=== PATIENT | male | born 1955 | race Caucasian/White ===

== ENCOUNTER 2018-03-09 13:42 | Observation (INO) | payer BC, MEDICARE ==
[~2018-03-09] VITALS: Ht 172.7 cm; Wt 84.1 kg
[~2018-03-09 13:42] MED LIST: ALLOPURINOL300 MG PO; ASPIRIN325 MG PO; ASPIRIN81 MG PO; ATENOLOL50 MG PO; ATORVASTATIN CA20 MG PO; CIMETIDINE800 MG PO; CLOPIDOGREL75 MG PO; FEOSOL45 MG PO; IRON PO; LISINOPRIL10 MG PO; METOPROLOL TART25 MG PO; MULTI-VITAMIN1 EACH PO; PLAVIX75 MG PO; TASIGNA150 MG PO; XARALTO PO; [UNRECOGNIZED DRUG - OTHER] PO
--- OUTSIDE RECORDS SUMMARY | 2018-03-09 13:45 | XMS REPORT | Clinical Summary ---
Author Author [id number] Organization [facility] [employer] [facility] Address Unknown Phone Unavailable Care Team Providers Care Acute Care Surgeon Name Role Phone Sharpless PCP Ramon Patel Andreas Unavailable Allergies No Known Allergies Medications End Date Status Medication Sig Dispensed Refills Start Date Active lisinopril Take 10 mg by 0 (PRINIVIL,ZESTRIL) 10 MG mouth daily. tablet Active allopurinol (ZYLOPRIM) Take 300 mg 0 300 MG tablet by mouth 2 (two) times daily. Active atorvastatin (LIPITOR) 40 Take 40 mg by 0 MG tablet mouth daily. Active cimetidine (TAGAMET) 800 Take 800 mg 0 MG tablet by mouth nightly. Active NILOTINIB HCL (TASIGNA Take 300 mg 0 ORAL) by mouth 2 (two) times daily. 07/23/2017 aspirin 81 MG EC tablet Take 1 tablet 30 tablet 11 (81 mg total) 7 by mouth daily. 07/23/2017 guaiFENesin (MUCINEX) 600 Take 1 tablet 60 tablet 11 mg 12 hr tablet (600 mg 7 total) by mouth 2 (two) times daily. 07/23/2017 metoprolol (LOPRESSOR) 25 Take 1 tablet 60 tablet 11 MG tablet (25 mg total) 7 by mouth 2 (two) times daily. Active Problems Problem Noted Date YOMI (acute kidney injury) 07/16/2016 Aortocoronary bypass status 07/16/2016 CAD (coronary artery disease) 07/15/2016 Coronary artery disease 07/15/2016 CML (chronic myelocytic leukemia) 07/15/2016 Acute pulmonary insufficiency following thoracic surgery 07/15/2016 Social History Date Tobacco Use Types Packs/Day Years Used Former Smoker 20 Alcohol Use Drinks/Week oz/Week Comments No Sex Assigned at Date Recorded Not on file Industry Job Start Date Occupation Not on file Not on file Not on file Travel End Travel History Travel Start No recent travel history available. Last Filed Vital Signs Not on file Plan of Treatment Health Maintenance Due Date Last Done Comments INFLUENZA VACCINE 01/26/2018 Results Not on fileafter 03/08/2017 Insurance Payer Benefit Subscriber ID Type Phone Address Plan / Group BLUE CROSS/BLUE SHIELD BCBS OS xxxxxxxxxxxx PPO [phone] [address] POS/PPO/[place] [address] O (Home) [place] [address] Advance Directives For more information, please contact: [facility] [address] [place] [id number] Date Inactivated Comments Code Status Date Activated 07/23/2016 5:03 PM Full Code 07/15/2016 5:15 PM This code status was determined by: Patient 07/15/2016 5:15 PM Full Code 07/15/2016 8:44 AM This code status was determined by: Patient
--- OUTSIDE RECORDS SUMMARY | 2018-03-09 13:45 | XMS REPORT | Summary of Care ---
Author Author [facility] Organization [facility] Address Unknown Phone Unavailable Encounter MAU Kaplan(FLORENCIA) [id number] Date(s): 04/22/17 - 04/22/17 [facility] [address] Discharge Disposition: Home or Self Care Attending Physician: Physician, Non Associated MD Referring Physician: Pollo Lathma MD Vital Signs 1 2 3 Most recent to oldest [Reference Range]: 172.72 cm (04/17/17 10:17 AM) Height 152/70 mmHg *HI* (04/22/17 12:30 PM) 125/63 mmHg (04/22/17 12:00 PM) 125/65 mmHg (04/22/17 11:45 AM) Blood Pressure [90-140/60-90 mmHg] 16 BRMIN (04/22/17 12:30 PM) 12 BRMIN *LOW* (04/22/17 12:00 PM) 12 BRMIN *LOW* (04/22/17 11:45 AM) Respiratory Rate [14-20 BRMIN] 61 bpm (04/22/17 6:45 AM) Peripheral Pulse Rate [60-100 bpm] 81.818 kg (04/17/17 10:17 AM) Weight 27.43 m2 (04/17/17 10:17 AM) Body Mass Index Problem List Condition Effective Dates Status Health Status Informant Anemia(Confirmed)1 Resolved Atrial Active fibrillation(Confirm ed) History of heart Resolved attack(Confirmed)2 HLD Active (hyperlipidemia)(Con firmed) Leukemia(Confirmed) Active 1blood transfusion after heart surgery and 4 iron transfusions 2about eight years ago Allergies, Adverse Reactions, Alerts Substance Reaction Severity Status NKDA Active Medications aspirin 81 mg, PO, Daily, 0 Refill(s) Start Date: 04/17/17 Status: Ordered atenolol PO, Bedtime, 0 Refill(s) Start Date: 04/17/17 Status: Ordered atorvastatin 40 mg, PO, Daily, 0 Refill(s) Start Date: 04/17/17 Status: Ordered celecoxib 200 mg oral capsule 200 mg=1 cap, PO, BID, 0 Refill(s) Start Date: 04/17/17 Status: Ordered clopidogrel 75 mg oral tablet 75 mg=1 tab, PO, Daily, 0 Refill(s) Start Date: 04/17/17 Status: Ordered Co-Q10 PO, 0 Refill(s) Start Date: 04/17/17 Status: Ordered Lasix 20 mg, PO, Daily, 0 Refill(s) Start Date: 04/17/17 Status: Ordered lisinopril 10 mg, PO, Daily, 0 Refill(s) Start Date: 04/17/17 Status: Ordered pantoprazole 40 mg oral granule =1 Pack, PO, Daily, # 30 ea, 0 Refill(s) Start Date: 04/17/17 Status: Ordered sucralfate 1 gm, PO, Before Meals & Bedtime, # 200 ml, 0 Refill(s) Start Date: 04/17/17 Status: Ordered sugammadex 500 mg, 5 mL, Route: IV, Drug form: KENDRICK MUÑOZ, Start date: 04/22/17 11:00:00 PHOTOGRAPHY SALES ASSOCIATE, Duration: 30 day, Stop date: 05/22/17 10:59:00 PHOTOGRAPHY SALES ASSOCIATE Notes: (Same as: Bridion) Start Date: 04/22/17 Stop Date: 04/22/17 Status: Deleted Tasigna 300 mg, PO, Q12H, 0 Refill(s) Start Date: 04/17/17 Status: Ordered Zofran 4 mg, Route: IV, ONCE, Dosing Weight 81.818, kg, Start date: 04/22/17 12:12:[address], Stop date: 04/22/17 12:12:00 PHOTOGRAPHY SALES ASSOCIATE Start Date: 04/22/17 Stop Date: 04/22/17 Status: Completed Results ELECTROLYTES Most recent to 1 oldest [Reference Range]: Sodium Lvl [135-145 138 mEq/L mEq/L] (04/22/17 6:43 AM) Potassium Lvl 4.2 mEq/L [3.5-5.1 mEq/L] (04/22/17 6:43 AM) Chloride Lvl [95-109 104 mEq/L mEq/L] (04/22/17 6:43 AM) CO2 [24-32 mEq/L] 26 mEq/L (04/22/17 6:43 AM) AGAP [10.0-20.0 12.2 mEq/L mEq/L] (04/22/17 6:43 AM) CHEM PANEL Most recent to 1 oldest [Reference Range]: Creatinine Lvl 1.18 mg/dL [0.50-1.40 mg/dL] (04/22/17 6:43 AM) eGFR 65 mL/min/1.73m2 1 *NA* (04/22/17 6:43 AM) BUN [7-22 mg/dL] 17 mg/dL (04/22/17 6:43 AM) Glucose Lvl [70-99 102 mg/dL mg/dL] *HI* (04/22/17 6:43 AM) Calcium Lvl 9.4 mg/dL [8.5-10.5 mg/dL] (04/22/17 6:43 AM) 1Result Comment: The eGFR is calculated using the CKD-EPI formula. In most young, healthy individuals the eGFR will be >90 mL/min/1.73m2. The eGFR declines with age. An eGFR of 60-89 may be normal in some populations, particularly the elderly, for whom the CKD-EPI formula has not been extensively validated. Use of the eGFR is not recommended in the following populations: Individuals with unstable creatinine concentrations, including patients and those with serious co-morbid conditions. Patients with extremes in muscle mass or diet. The data above are obtained from the National Kidney Disease Education Program ( NKDEP) which additionally recommends that when the eGFR is used in patients with extremes of body mass index for purposes of drug dosing, the eGFR should be mul tiplied by the estimated BMI. Immunizations No data available for this section Procedures Procedure Date Related Diagnosis Body Site Bypass1 2016 Placement of stent 2008 Cardiac catheterisation Procedure2 Tonsillectomy 1MARCH 2016 2pt does not know the medical term for this monitor Social History Social History Type Response Substance Abuse Use: None. Alcohol Current, Frequency: 1-2 times per year. Smoking Status Never smoker; Type: Cigarettes; Exposure to Tobacco Smoke None; Cigarette Smoking Last 365 Days No; Reg Smoking Cessation Counseling No Assessment and Plan No data available for this section
--- OUTSIDE RECORDS SUMMARY | 2018-03-09 13:45 | XMS REPORT | Continuity of Care Document ---
Author Author [facility] Address Unknown Phone Unavailable Problems Problem Status Onset Date Classification Date Reported Comments Source CONSTRICTIVE PERICARDITIS Active 03/11/2017 [facility] CONSTRICTIVE, PERICARDITIS/ PT HAS LOOP Active 01/08/2017 [facility] Anemia<sup>1</sup> Resolved Problem 04/25/2017 blood transfusion after heart surgery and 4 iron transfusions [facility] Atrial fibrillation Active Problem 04/25/2017 [facility] History of heart attack<sup>2</sup> Resolved Problem 04/25/2017 about eight years ago [facility] HLD (<span ID="[id number]">Confirmed</span>) Active Problem 04/25/2017 [facility] Leukemia Active Problem 04/25/2017 [facility] Medications Medication Details Route Status Patient Instructions Ordering Provider Order Date Source Zofran 4 mg, Route: IV, ONCE, Dosing Weight 81.818, kg, Start date: 04/22/17 12:12:00 MECHANICAL STRIPER, Stop date: 04/22/17 12:12:00 MECHANICAL STRIPER Inactive 04/22/2017 [facility] sugammadex 500 mg, 5 mL, Route: IV, Drug form: SOLN, ONCALL, Start date: 04/22/17 11:00:00 MECHANICAL STRIPER, Duration: 30 day, Stop date: 05/22/17 10:59:00 CSTNotes: (Same as: Bridion) Inactive 04/22/2017 [facility] clopidogrel 75 mg oral tablet 75 mg=1 tab, PO, Daily, 0 Refill(s) Active 04/17/2017 [facility] atorvastatin 40 mg, PO, Daily, 0 Refill(s) Active 04/17/2017 [facility] Tasigna 300 mg, PO, Q12H, 0 Refill(s) Active 04/17/2017 [facility] Lisinopril 10 mg, PO, Daily, 0 Refill(s) Active 04/17/2017 [facility] Atenolol PO, Bedtime, 0 Refill(s) Active 04/17/2017 [facility] celecoxib 200 mg oral capsule 200 mg=1 cap, PO, BID, 0 Refill(s) Active 04/17/2017 [facility] Sucralfate 1 gm, PO, Before Meals & Bedtime, # 200 ml, 0 Refill(s) Active 04/17/2017 [facility] pantoprazole 40 mg oral granule =1 Pack, PO, Daily, # 30 ea, 0 Refill(s) Active 04/17/2017 [facility] Lasix 20 mg, PO, Daily, 0 Refill(s) Active 04/17/2017 [facility] Co-Q10 PO, 0 Refill(s) Active 04/17/2017 [facility] Aspirin 81 mg, PO, Daily, 0 Refill(s) Active 04/17/2017 [facility] Allergies, Adverse Reactions, Alerts Substance Category Reaction Severity Reaction type Status Date Reported Comments Source Immunizations Immunization Date Given Site Status Last Updated Comments Source Results Order Name Results Value Reference Range Date Interpretation Comments Source ELECTROLYTES Sodium Lvl 138 meq/L 135 - 145 04/22/2017 [facility] ELECTROLYTES Chloride Lvl 104 meq/L 95 - 109 04/22/2017 [facility] ELECTROLYTES Calcium Lvl 9.4 mg/dL 8.5 - 10.5 04/22/2017 [facility] ELECTROLYTES Potassium Lvl 4.2 meq/L 3.5 - 5.1 04/22/2017 [facility] ELECTROLYTES Glucose Lvl 102 mg/dL 70 - 99 04/22/2017 [facility] ELECTROLYTES Creatinine Lvl 1.18 mg/dL 0.50 - 1.40 04/22/2017 [facility] ELECTROLYTES CO2 26 meq/L 24 - 32 04/22/2017 [facility] ELECTROLYTES BUN 17 mg/dL 7 - 22 04/22/2017 [facility] ELECTROLYTES AGAP 12.2 meq/L 10.0 - 20.0 04/22/2017 [facility] ELECTROLYTES eGFR 65 mL/min/1.73m2 04/22/2017 Result Comment: The eGFR is calculated using the [...] from the National Kidney Disease Education Program (NKDEP) which additionally recommends that when the eGFR is used in patients with extremes of body mass index for purposes of drug dosing, the eGFR should be multiplied by the estimated BMI. [facility] Cardiac Function Complete MRI Cardiac Function Complete MRI EXAM: MR HEART WITHOUT AND WITH CONTRAST DATE: 04/22/2017 8:00 AM MECHANICAL STRIPER INDICATION: General Anesthesia-Cardiac MRI with/without IV contrast-DX: Constrictive Pericarditis - Cardiac MRI with/without IV contrast-DX: Constrictive Pericarditis ADDITIONAL INFORMATION: Loculated pericardial effusion with prior cardiac CT COMPARISON: Cardiac CT 01/15/2017 TECHNIQUE: Multiplanar, multisequence MR images of the heart were obtained before and after administration of intravenous contrast. The study was transferred to work station where analysis of cardiac function was performed. IV contrast: Please refer to technologist notes for contrast information Heart rate=55 BPM. FINDINGS: Cardiac chambers: Mild dilation of the right atrium is noted with cross- sectional area of approximately 25 sq cm. Mild dilation of the left atrium is also seen measuring up to 4.6 cm in AP dimension. Dilation of the right ventricle is also noted with elevated end-diastolic volume as detailed below. The left ventricle is also mildly dilated measuring up to 6.1 cm in diameter. No septal bounce or abnormal diastolic filling is identified. There was no evidence of interventricular septal bowing towards the left ventricle nor impaired pericardial movement other than the region of the loculated inferior pericardial effusion. Myocardium: Thickness: Normal. Edema (TIR): Normal. Perfusion: Normal. Delayed enhancement: Subendocardial delayed enhancement is seen along the inferoseptal and inferior segments of the cardiac base with greater than 50% of the myocardium affected. LV wall motion: No areas of hypokinesis, dyskinesis, or akinesis are identified. LV Myocardial Function (REFERENCE RANGE mean +- SD(LL,UL)): Ejection fraction: 48.4% (68 +- 4.5 (59, 77) %) Stroke-volume: 94 mL (100 +- 14 (72, 128) mL) Cardiac output: 5.2 liters/min End-diastolic volume: 195 mL (148 +- 21 (106, 190) mL) End-systolic volume: 101 mL (48 +- 11 (26, 70) mL) RV Myocardial Function (REFERENCE RANGE mean +- SD(LL,UL)) Ejection fraction: 38.5% (69 +- 7 (55, 83) %) Stroke-volume: 91 mL (105 +- 17 (71, 139) mL) Cardiac output: 5.0 liters/min End-diastolic volume: 235 mL (153 +- 25 (103, 203) mL) End-systolic volume: 145 mL (48 +- 15 (18, 78) mL) Valves: Aortic valve: Unremarkable without evidence of aortic stenosis nor evidence of significant regurgitation. Mitral valve: Trace regurgitation jet, otherwise unremarkable. Pulmonic valve: Unremarkable. Tricuspid valve: Trace regurgitant jet, otherwise unremarkable. Large vessels: Aorta and branches: Ascending aortic dimension (at level of pulmonary artery): 3.0 cm. Branching pattern: The left vertebral artery originates strictly of the aortic arch. Aortic outflow (q-flow) measurements: Stroke Volume: 93.1 mL Forward Flow: 94.4 mL Backward Flow: 1.3 mL Regurgitant Fraction: 1.4% Main pulmonary artery: Patent. MPA caliber: 2.6 cm. Pericardium: A loculated pericardial effusion with peripheral thickening, peripheral segment, and internal thin septations is again seen along the inferior aspect of the heart measuring approximately 9.1 x 8.8 x 3.3 cm (TV by AP by CC). Elsewhere, there is not significant pericardial thickening. Extracardiac: Moderate bilateral pleural effusions are present. Changes of median sternotomy are noted. REFERENCE RANGES: (from: Normal values for cardiovascular magnetic resonance in adults and children. Dane Mendosa Bluemke et al., Journal of Cardiovascular Magnetic Resonance 2015 17:29 DOI: 10.1186/w76693-397-4944-2) IMPRESSION: 1. Loculated pericardial effusion with thick peripheral enhancement and multiple internal septations located along the inferior aspect of the heart and measuring up to 9.1 cm in greatest dimension, similar in size compared to be prior cardiac CT from 01/15/2017. This likely represents a chronic, loculated pericardial hematoma given the patient's history of prior surgery. No evidence of significant pericardial thickening elsewhere. 2. No physiologic features to suggest constrictive physiology. 3. Cardiomegaly with four-chamber enlargement. 4. Subendocardial enhancement along the basal inferoseptal and inferior wall left ventricular segments spanning greater than 50% wall thickness in some regions without evidence of associated perfusion defect nor evidence of acute myocardial edema, suggestive of a remote infarction in the RCA territory. 5. Left ventricular ejection fraction of 48% and right ventricular ejection fraction of 39%. 6. Moderate bilateral pleural effusions are present. 04/22/2017 - - This report was dictated by a Shearer Helper/Fellow. I have personally reviewed the images as well as the Resident's interpretation and agree with the findings. Read by: Shamir Schilling (Fellow) Resident: Shamir Schilling (Fellow) Dictated Date/time: 04/22/17 11:26 Electronically Signed by: Raz Navarrete MD 04/22/17 13:40 FINAL REPORT [facility] CHEM PANEL eGFR 64 mL/min/1.73m2 01/15/2017 Result Comment: The eGFR is calculated using the [...] from the National Kidney Disease Education Program (NKDEP) which additionally recommends that when the eGFR is used in patients with extremes of body mass index for purposes of drug dosing, the eGFR should be multiplied by the estimated BMI. [facility] CHEM PANEL POC Creatinine 1.2 mg/dL 0.5 - 1.4 01/15/2017 [facility] Heart wo contrast w eval coronary calc C Heart wo contrast w eval coronary calc C ADDENDUM: Extracardiac findings: The visualized portion of the chest and upper abdomen demonstrate: 1. Few scattered atelectatic changes in both lungs, otherwise lungs are clear. 2. Trace right and small left pleural effusions. 3. Small sliding hiatal hernia. 4. The visualized portion of the upper abdomen is unremarkable. 5. No worrisome focal osseous lesions. Post sternotomy surgical changes anteriorly. CORONARY CT ANGIOGRAPHY WITH CALCIUM SCORE REPORT DATE PERFORMED: DATE INTERPRETED: QUALITY: Fair COMPARISON: None CLINICAL HISTORY: 61 year-old patient with history of CABG, here for evaluation of pericardial disease. TECHNIQUE: Using a [employer] Aquilion 64 slice MDCT scanner, a preliminary air quality engineer study was obtained, followed by a noncontrast calcium protocol. Data were transferred off-line to an independent workstation for: - 3D anatomic reconstructions, including curved multiplanar reconstructions (MPR), maximum intensity projections (MIP), and multi-planar imaging. FINDINGS: Please see separate radiologists report for extra-cardiac findings in the available limited views of the lungs, mediastinum and bone structures. There is evidence for prior sternotomy. Heavily calcified coronary arteries, possibly a stent in the mid right coronary artery. There is evidence for pericardial thickening, more prominent in the superior mediastinum in the retrosternal area, consistent with prior history of CABG. There is a loculated pericardial effusion adjacent to the inferior wall, measuring 33 mm in depth. There is a left pleural effusion visualized Given findings of prior CABG extensive coronary disease, coronary calcium score was not calculated. IMPRESSIONS: 1. Thickening of the pericardium in the superior mediastinum and loculated pericardial effusion located adjacent to the inferior wall as described above. 2. Extensive coronary calcification, prior history of CABG 4. Given these findings in noncontrast CT, coronary CTA was not performed and contrast was not administered 5. Case was discussed with ordering physician, recommend cardiac MRI for further assessment of pericardial pathology 01/15/2017 - - Read by: Mason Anaya MD Dictated Date/time: 01/17/17 09:02 Electronically Signed by: Mason Anaya MD 01/17/17 09:17 FINAL REPORT - - Read by: Narendra Cadena Dictated Date/time: 01/15/17 16:57 Electronically Signed by: Narendra Cadena 01/15/17 17:08 FINAL REPORT [facility] Chest 2 views DX Chest 2 views DX EXAM: XR CHEST 1 VIEW DATE: 01/14/2017 2:51 PM CDT INDICATION: LOCATE FOREIGN BODY IMPLANT - MRI CLEARENCE COMPARISON: None. TECHNIQUE: AP chest IMPRESSION: 1. Anterior chest wall implanted loop recorder is noted. 2. Cardiomediastinal silhouette is upper limit of normal size. Status post coronary artery bypass graft with postsurgical changes. 3. Minimal bibasilar atelectatic changes. Otherwise, lungs are clear. 4. No pleural effusions. 5. Osseous structures are stable. 01/14/2017 - - Read by: Mason Anaya MD Dictated Date/time: 01/14/17 15:14 Electronically Signed by: Mason Anaya MD 01/14/17 15:16 FINAL REPORT [facility] Vital Signs Vital Sign Value Date Comments Source Respitory Rate 16 04/22/2017 [facility] Systolic (mm Hg) 152 04/22/2017 [facility] Diastolic (mm Hg) 70 04/22/2017 [facility] Systolic (mm Hg) 125 04/22/2017 [facility] Diastolic (mm Hg) 63 04/22/2017 [facility] Respitory Rate 12 04/22/2017 [facility] Systolic (mm Hg) 125 04/22/2017 [facility] Diastolic (mm Hg) 65 04/22/2017 [facility] Respitory Rate 12 04/22/2017 [facility] Heart Rate 61 04/22/2017 [facility] BMI Calculated 27.43 04/17/2017 [facility] Height 172.72 cm 04/17/2017 [facility] Weight 81.818 04/17/2017 [facility] Encounters Location Location Details Encounter Type Encounter Number Reason For Visit Attending Provider ADM Date DC Date Status Source [facility] [id number] Pollo Latham 01/14/2017 01/15/2017 [facility] Outpatient [id number] Pollo [facility] 01/15/2017 01/16/2017 [facility] Day Surgery [id number] Non Physician 04/22/2017 04/23/2017 [facility] Procedures Procedure Code Date Perfomer Comments Source Bypass<sup>1</sup> [id number] 04/28/2016 [facility] Placement of stent [id number] 04/28/2008 [facility] Cardiac catheterisation [id number] [facility] Procedure<sup>2</sup> [id number] pt does not know the medical term for this monitor [facility] Tonsillectomy [id number] [facility]
--- OUTSIDE RECORDS SUMMARY | 2018-03-09 13:45 | XMS REPORT | Summary of Care ---
Author Author [facility] Organization [facility] Address Unknown Phone Unavailable Encounter [facility] Encntr_alias(FIN) [id number] Date(s): 01/14/17 - 01/14/[address] Discharge Disposition: Home or Self Care Attending Physician: Pollo Latham MD Referring Physician: Pollo Latham MD Vital Signs No data available for this section Problem List No data available for this section Allergies, Adverse Reactions, Alerts No data available for this section Medications No data available for this section Results No data available for this section Immunizations No data available for this section Procedures No data available for this section Social History No data available for this section Assessment and Plan No data available for this section
--- OUTSIDE RECORDS SUMMARY | 2018-03-09 13:45 | XMS REPORT | Summary of Care ---
Author Author [facility] Organization [facility] Address Unknown Phone Unavailable Encounter [facility]([place]) [phone] Date(s): 01/15/17 - 01/15/17 [facility] [address] [employer] provided by [facility] [employer] [facility] [place] [address]- Discharge Disposition: Home or Self Care Attending Physician: Pollo Latham MD Referring Physician: Pollo Latham MD Vital Signs No data available for this section Problem List No data available for this section Allergies, Adverse Reactions, Alerts No data available for this section Medications No data available for this section Results CHEM PANEL Most recent to 1 oldest [Reference Range]: eGFR 64 mL/min/1.73m2 1 *NA* (01/15/17 1:53 PM) POC Creatinine 1.2 mg/dL [0.5-1.4 mg/dL] (01/15/17 1:53 PM) 1Result Comment: The eGFR is calculated using [...]
--- OUTSIDE RECORDS SUMMARY | 2018-03-09 13:46 | XMS REPORT ---
Author Author [facility] Address Unknown Phone Unavailable Care Team Providers Care Asphalt Layer Name Role Phone COSME HERRERA Unavailable Unavailable Problems This patient has no known problems. Allergies, Adverse Reactions, Alerts This patient has no known allergies or adverse reactions. Medications This patient has no known medications. Results Test Description Test Time Test Comments Text Results Atomic Results Result Comments MAGNESIUM 2016-07-23 05:15:00 MAGNESIUM (BEAKER) (test lgte=566) 1.9 mg/dL 1.6-2.6 BASIC METABOLIC [id number] 05:15:00* Test Item Value Reference Range Comments SODIUM (BEAKER) (test qanq=595) 136 meq/L 136-145 POTASSIUM (BEAKER) (test tujd=028) 4.5 meq/L 3.5-5.1 CHLORIDE (BEAKER) (test ayfd=928) 103 meq/L 98-107 CO2 (BEAKER) (test shbc=527) 23 meq/L 22-29 BLOOD UREA NITROGEN (BEAKER) (test weml=841) 22 mg/dL 7-21 CREATININE (BEAKER) (test vpoz=367) 0.90 mg/dL 0.57-1.25 GLUCOSE RANDOM (BEAKER) (test ahli=867) 100 mg/dL 70-105 CALCIUM (BEAKER) (test btbu=226) 8.9 mg/dL 8.4-10.2 EGFR (BEAKER) (test ookc=5879) 85 mL/min/1.73 sq m ESTIMATED GFR IS NOT ACCURATE CREATININE CLEARANCE IN PREDICTING GLOMERULAR FILTRATION RATE. ESTIMATED GFR IS NOT APPLICABLE FOR DIALYSIS PATIENTS. CBC W/PLT COUNT & AUTO [id number] 05:09:00* Test Item Value Reference Range Comments WHITE BLOOD CELL COUNT (BEAKER) (test xixd=858) 11.7 K/ L 4.0-10.0 RED BLOOD CELL COUNT (BEAKER) (test pzwe=307) 2.91 M/ L 4.20-5.80 HEMOGLOBIN (BEAKER) (test qocl=672) 8.9 GM/DL 13.0-16.8 HEMATOCRIT (BEAKER) (test qwfr=384) 27.2 % 40.0-50.0 MEAN CORPUSCULAR VOLUME (BEAKER) (test dbup=064) 93.3 fL 82.0-98.0 MEAN CORPUSCULAR HEMOGLOBIN (BEAKER) (test ipvo=423) 30.6 pg 27.0-33.0 MEAN CORPUSCULAR HEMOGLOBIN CONC (BEAKER) (test ktfc=446) 32.7 GM/DL 32.0-36.0 RED CELL DISTRIBUTION WIDTH (BEAKER) (test ufdx=299) 14.9 % 10.3-14.2 PLATELET COUNT (BEAKER) (test xtgs=363) 303 K/CU MM 150-430 MEAN PLATELET VOLUME (BEAKER) (test ulpe=544) 7.5 fL 6.5-10.5 NUCLEATED RED BLOOD CELLS (BEAKER) (test pqgv=227) 0 /100 WBC 0-0 NEUTROPHILS RELATIVE PERCENT (BEAKER) (test wmjo=067) 71 % LYMPHOCYTES RELATIVE PERCENT (BEAKER) (test rkff=089) 13 % MONOCYTES RELATIVE PERCENT (BEAKER) (test snlt=736) 10 % EOSINOPHILS RELATIVE PERCENT (BEAKER) (test biux=176) 6 % BASOPHILS RELATIVE PERCENT (BEAKER) (test wekw=276) 1 % NEUTROPHILS ABSOLUTE COUNT (BEAKER) (test owor=035) 8.28 K/ L 1.80-8.00 LYMPHOCYTES ABSOLUTE COUNT (BEAKER) (test gjwy=452) 1.50 K/ L 1.48-4.50 MONOCYTES ABSOLUTE COUNT (BEAKER) (test fycf=534) 1.14 K/ L 0.00-1.30 EOSINOPHILS ABSOLUTE COUNT (BEAKER) (test orsd=808) 0.72 K/ L 0.00-0.50 BASOPHILS ABSOLUTE COUNT (BEAKER) (test rmcq=175) 0.07 K/ L 0.00-0.20 0.00SPUTUM CULTURE + GRAM [id number] 01:54:00* Test Item Value Reference Range Comments CULTURE (BEAKER) (test xguy=8632) 4+ Haemophilus influenzaeBeta-lactamase positive GRAM STAIN RESULT (BEAKER) (test sbnu=5564) 2+ WBCs GRAM STAIN RESULT (BEAKER) (test rfle=221954) 0-5 epithelial cells GRAM STAIN RESULT (BEAKER) (test jpnv=763788) 4+ gram negative coccobacilli 1+ Normal respiratory alden [id number] 05:28:00* Test Item Value Reference Range Comments MAGNESIUM (BEAKER) (test oqnj=553) 1.9 mg/dL 1.6-2.6 BASIC METABOLIC [id number] 05:28:00* Test Item Value Reference Range Comments SODIUM (BEAKER) (test prgv=904) 137 meq/L 136-145 POTASSIUM (BEAKER) (test meiu=053) 3.8 meq/L 3.5-5.1 CHLORIDE (BEAKER) (test stry=901) 101 meq/L 98-107 CO2 (BEAKER) (test xoqe=292) 25 meq/L 22-29 BLOOD UREA NITROGEN (BEAKER) (test cdgv=974) 25 mg/dL 7-21 CREATININE (BEAKER) (test brbs=305) 0.94 mg/dL 0.57-1.25 GLUCOSE RANDOM (BEAKER) (test asho=227) 102 mg/dL 70-105 CALCIUM (BEAKER) (test orny=457) 9.1 mg/dL 8.4-10.2 EGFR (BEAKER) (test nsez=6471) 81 mL/min/1.73 sq m ESTIMATED GFR IS NOT ACCURATE CREATININE CLEARANCE IN PREDICTING GLOMERULAR FILTRATION RATE. ESTIMATED GFR IS NOT APPLICABLE FOR DIALYSIS PATIENTS. CBC W/PLT COUNT & AUTO [id number] 05:25:00* Test Item Value Reference Range Comments WHITE BLOOD CELL COUNT (BEAKER) (test mejd=638) 12.9 K/ L 4.0-10.0 RED BLOOD CELL COUNT (BEAKER) (test ompa=618) 3.07 M/ L 4.20-5.80 HEMOGLOBIN (BEAKER) (test ammj=512) 9.2 GM/DL 13.0-16.8 HEMATOCRIT (BEAKER) (test yrsp=112) 28.5 % 40.0-50.0 MEAN CORPUSCULAR VOLUME (BEAKER) (test xnrp=939) 92.7 fL 82.0-98.0 MEAN CORPUSCULAR HEMOGLOBIN (BEAKER) (test vfxd=465) 30.0 pg 27.0-33.0 MEAN CORPUSCULAR HEMOGLOBIN CONC (BEAKER) (test gmgc=695) 32.4 GM/DL 32.0-36.0 RED CELL DISTRIBUTION WIDTH (BEAKER) (test ikrm=970) 14.5 % 10.3-14.2 PLATELET COUNT (BEAKER) (test exbj=148) 261 K/CU MM 150-430 MEAN PLATELET VOLUME (BEAKER) (test yetu=964) 8.2 fL 6.5-10.5 NUCLEATED RED BLOOD CELLS (BEAKER) (test spsr=639) 0 /100 WBC 0-0 NEUTROPHILS RELATIVE PERCENT (BEAKER) (test ymhd=458) 71 % LYMPHOCYTES RELATIVE PERCENT (BEAKER) (test qhkz=096) 15 % MONOCYTES RELATIVE PERCENT (BEAKER) (test ibbe=092) 10 % EOSINOPHILS RELATIVE PERCENT (BEAKER) (test kbbj=641) 4 % BASOPHILS RELATIVE PERCENT (BEAKER) (test scdr=657) 1 % NEUTROPHILS ABSOLUTE COUNT (BEAKER) (test utdo=012) 9.17 K/ L 1.80-8.00 LYMPHOCYTES ABSOLUTE COUNT (BEAKER) (test ifjm=286) 1.95 K/ L 1.48-4.50 MONOCYTES ABSOLUTE COUNT (BEAKER) (test cjeg=736) 1.27 K/ L 0.00-1.30 EOSINOPHILS ABSOLUTE COUNT (BEAKER) (test ygep=178) 0.47 K/ L 0.00-0.50 BASOPHILS ABSOLUTE COUNT (BEAKER) (test wxhv=419) 0.07 K/ L 0.00-0.20 0.00CBC W/PLT COUNT & AUTO [id number] 06:45:00* Test Item Value Reference Range Comments WHITE BLOOD CELL COUNT (BEAKER) (test hpvd=224) 11.1 K/ L 4.0-10.0 RED BLOOD CELL COUNT (BEAKER) (test qmjy=741) 2.91 M/ L 4.20-5.80 HEMOGLOBIN (BEAKER) (test phhb=470) 8.6 GM/DL 13.0-16.8 HEMATOCRIT (BEAKER) (test tlsn=197) 27.0 % 40.0-50.0 MEAN CORPUSCULAR VOLUME (BEAKER) (test kklk=338) 92.9 fL 82.0-98.0 MEAN CORPUSCULAR HEMOGLOBIN (BEAKER) (test tecc=217) 29.5 pg 27.0-33.0 MEAN CORPUSCULAR HEMOGLOBIN CONC (BEAKER) (test otwh=298) 31.7 GM/DL 32.0-36.0 RED CELL DISTRIBUTION WIDTH (BEAKER) (test zoqe=814) 14.6 % 10.3-14.2 PLATELET COUNT (BEAKER) (test jreu=113) 220 K/CU MM 150-430 MEAN PLATELET VOLUME (BEAKER) (test cnxj=336) 8.1 fL 6.5-10.5 NUCLEATED RED BLOOD CELLS (BEAKER) (test bpxd=198) 0 /100 WBC 0-0 NEUTROPHILS RELATIVE PERCENT (BEAKER) (test mscd=997) 72 % LYMPHOCYTES RELATIVE PERCENT (BEAKER) (test wpcn=800) 12 % MONOCYTES RELATIVE PERCENT (BEAKER) (test uiie=478) 12 % EOSINOPHILS RELATIVE PERCENT (BEAKER) (test vbem=216) 4 % BASOPHILS RELATIVE PERCENT (BEAKER) (test jwno=651) 1 % NEUTROPHILS ABSOLUTE COUNT (BEAKER) (test rncm=990) 7.96 K/ L 1.80-8.00 LYMPHOCYTES ABSOLUTE COUNT (BEAKER) (test ccmc=239) 1.37 K/ L 1.48-4.50 MONOCYTES ABSOLUTE COUNT (BEAKER) (test siqo=012) 1.28 K/ L 0.00-1.30 EOSINOPHILS ABSOLUTE COUNT (BEAKER) (test hfxe=043) 0.44 K/ L 0.00-0.50 BASOPHILS ABSOLUTE COUNT (BEAKER) (test xrri=935) 0.06 K/ L 0.00-0.20 [id number] 06:29:00* Test Item Value Reference Range Comments MAGNESIUM (BEAKER) (test rjqv=351) 2.0 mg/dL 1.6-2.6 BASIC METABOLIC [id number] 06:29:00* Test Item Value Reference Range Comments SODIUM (BEAKER) (test nfzj=172) 136 meq/L 136-145 POTASSIUM (BEAKER) (test fwap=368) 3.8 meq/L 3.5-5.1 CHLORIDE (BEAKER) (test faut=743) 102 meq/L 98-107 CO2 (BEAKER) (test aenc=810) 25 meq/L 22-29 BLOOD UREA NITROGEN (BEAKER) (test cdwr=564) 25 mg/dL 7-21 CREATININE (BEAKER) (test xfvh=367) 0.95 mg/dL 0.57-1.25 GLUCOSE RANDOM (BEAKER) (test rghp=592) 103 mg/dL 70-105 CALCIUM (BEAKER) (test ukbe=417) 8.9 mg/dL 8.4-10.2 EGFR (BEAKER) (test gpjb=6516) 80 mL/min/1.73 sq m ESTIMATED GFR IS NOT ACCURATE CREATININE CLEARANCE IN PREDICTING GLOMERULAR FILTRATION RATE. ESTIMATED GFR IS NOT APPLICABLE FOR DIALYSIS PATIENTS. CBC W/PLT COUNT & AUTO [id number] 15:22:00* Test Item Value Reference Range Comments WHITE BLOOD CELL COUNT (BEAKER) (test tikh=930) 11.7 K/ L 4.0-10.0 RED BLOOD CELL COUNT (BEAKER) (test utwk=581) 2.91 M/ L 4.20-5.80 HEMOGLOBIN (BEAKER) (test wpoh=286) 9.0 GM/DL 13.0-16.8 HEMATOCRIT (BEAKER) (test vrin=160) 27.1 % 40.0-50.0 MEAN CORPUSCULAR VOLUME (BEAKER) (test wprn=960) 93.2 fL 82.0-98.0 MEAN CORPUSCULAR HEMOGLOBIN (BEAKER) (test yujg=465) 31.1 pg 27.0-33.0 MEAN CORPUSCULAR HEMOGLOBIN CONC (BEAKER) (test nbrq=162) 33.3 GM/DL 32.0-36.0 RED CELL DISTRIBUTION WIDTH (BEAKER) (test qpex=975) 14.8 % 10.3-14.2 PLATELET COUNT (BEAKER) (test ckxk=741) 187 K/CU MM 150-430 MEAN PLATELET VOLUME (BEAKER) (test zknh=402) 9.0 fL 6.5-10.5 NUCLEATED RED BLOOD CELLS (BEAKER) (test znlc=755) 0 /100 WBC 0-0 NEUTROPHILS RELATIVE PERCENT (BEAKER) (test zutb=256) 72 % LYMPHOCYTES RELATIVE PERCENT (BEAKER) (test jcme=015) 12 % MONOCYTES RELATIVE PERCENT (BEAKER) (test ukgo=509) 12 % EOSINOPHILS RELATIVE PERCENT (BEAKER) (test uuct=490) 4 % BASOPHILS RELATIVE PERCENT (BEAKER) (test nvdu=765) 0 % NEUTROPHILS ABSOLUTE COUNT (BEAKER) (test zplz=709) 8.39 K/ L 1.80-8.00 LYMPHOCYTES ABSOLUTE COUNT (BEAKER) (test xvir=543) 1.44 K/ L 1.48-4.50 MONOCYTES ABSOLUTE COUNT (BEAKER) (test lxww=893) 1.36 K/ L 0.00-1.30 EOSINOPHILS ABSOLUTE COUNT (BEAKER) (test slel=420) 0.45 K/ L 0.00-0.50 BASOPHILS ABSOLUTE COUNT (BEAKER) (test patz=059) 0.05 K/ L 0.00-0.20 0.000.600.000.000.000.00(MANUAL DIFFERENTIAL)2016-07-20 15:22:00* Test Item Value Reference Range Comments TOTAL COUNTED (BEAKER) (test rkrw=9466) WBC MORPHOLOGY (BEAKER) (test irhu=266) Normal PLT MORPHOLOGY (BEAKER) (test udik=695) Normal ACANTHOCYTES (BEAKER) (test ugwd=969) 1+ few ANISOCYTOSIS (BEAKER) (test xbxc=532) 1+ few HYPOCHROMIA (BEAKER) (test eswu=726) 1+ few MACROCYTES (BEAKER) (test mwbn=428) 1+ few OVALOCYTES (BEAKER) (test uuok=138) 1+ few POIKILOCYTES (BEAKER) (test cbaa=322) 1+ few POLYCHROMATOPHILLIC RBCS(BEAKER) (test wipl=309) 1+ few BASIC METABOLIC [id number] 07:08:00* Test Item Value Reference Range Comments SODIUM (BEAKER) (test omdk=882) 139 meq/L 136-145 POTASSIUM (BEAKER) (test msss=811) 3.9 meq/L 3.5-5.1 CHLORIDE (BEAKER) (test bwyu=255) 103 meq/L 98-107 CO2 (BEAKER) (test tiky=546) 27 meq/L 22-29 BLOOD UREA NITROGEN (BEAKER) (test iidh=675) 26 mg/dL 7-21 CREATININE (BEAKER) (test tesy=762) 1.07 mg/dL 0.57-1.25 GLUCOSE RANDOM (BEAKER) (test yukf=518) 107 mg/dL 70-105 CALCIUM (BEAKER) (test fzdt=747) 9.5 mg/dL 8.4-10.2 EGFR (BEAKER) (test zbgh=0684) 70 mL/min/1.73 sq m ESTIMATED GFR IS NOT ACCURATE CREATININE CLEARANCE IN PREDICTING GLOMERULAR FILTRATION RATE. ESTIMATED GFR IS NOT APPLICABLE FOR DIALYSIS PATIENTS. POCT-GLUCOSE [id number] 12:04:00* Test Item Value Reference Range Comments POC-GLUCOSE METER (BEAKER) (test flji=8877) 120 mg/dL 70-110 TESTED AT [facility] [address] [facility] [address] POCT-GLUCOSE [id number] 08:15:00* Test Item Value Reference Range Comments POC-GLUCOSE METER (BEAKER) (test cpgb=3994) 145 mg/dL 70-110 TESTED AT [place] [id number] [facility] [address] CBC W/PLT COUNT & AUTO [id number] 05:02:00* Test Item Value Reference Range Comments WHITE BLOOD CELL COUNT (BEAKER) (test wamz=450) 11.0 K/ L 4.0-10.0 RED BLOOD CELL COUNT (BEAKER) (test xaxu=180) 3.15 M/ L 4.20-5.80 HEMOGLOBIN (BEAKER) (test vfsp=527) 10.0 GM/DL 13.0-16.8 HEMATOCRIT (BEAKER) (test icuv=330) 29.8 % 40.0-50.0 MEAN CORPUSCULAR VOLUME (BEAKER) (test ueix=899) 94.4 fL 82.0-98.0 MEAN CORPUSCULAR HEMOGLOBIN (BEAKER) (test yjek=057) 31.6 pg 27.0-33.0 MEAN CORPUSCULAR HEMOGLOBIN CONC (BEAKER) (test zbqc=787) 33.5 GM/DL 32.0-36.0 RED CELL DISTRIBUTION WIDTH (BEAKER) (test pylq=244) 15.7 % 10.3-14.2 PLATELET COUNT (BEAKER) (test ydeb=692) 128 K/CU MM 150-430 MEAN PLATELET VOLUME (BEAKER) (test mwra=910) 9.0 fL 6.5-10.5 NUCLEATED RED BLOOD CELLS (BEAKER) (test tevp=695) 0 /100 WBC 0-0 NEUTROPHILS RELATIVE PERCENT (BEAKER) (test pgma=091) 73 % LYMPHOCYTES RELATIVE PERCENT (BEAKER) (test unnu=167) 13 % MONOCYTES RELATIVE PERCENT (BEAKER) (test dfqs=709) 11 % EOSINOPHILS RELATIVE PERCENT (BEAKER) (test cwlo=191) 3 % BASOPHILS RELATIVE PERCENT (BEAKER) (test eonb=363) 1 % NEUTROPHILS ABSOLUTE COUNT (BEAKER) (test xsln=322) 7.98 K/ L 1.80-8.00 LYMPHOCYTES ABSOLUTE COUNT (BEAKER) (test xmbh=326) 1.45 K/ L 1.48-4.50 MONOCYTES ABSOLUTE COUNT (BEAKER) (test mhok=353) 1.15 K/ L 0.00-1.30 EOSINOPHILS ABSOLUTE COUNT (BEAKER) (test wicy=934) 0.35 K/ L 0.00-0.50 BASOPHILS ABSOLUTE COUNT (BEAKER) (test gqds=624) 0.06 K/ L 0.00-0.20 0.00BASIC METABOLIC [id number] 05:01:00* Test Item Value Reference Range Comments SODIUM (BEAKER) (test yjnq=272) 139 meq/L 136-145 POTASSIUM (BEAKER) (test cigm=718) 4.0 meq/L 3.5-5.1 CHLORIDE (BEAKER) (test mxyv=373) 104 meq/L 98-107 CO2 (BEAKER) (test nipv=814) 23 meq/L 22-29 BLOOD UREA NITROGEN (BEAKER) (test ytbb=232) 30 mg/dL 7-21 CREATININE (BEAKER) (test ecdk=438) 1.06 mg/dL 0.57-1.25 GLUCOSE RANDOM (BEAKER) (test qaoe=693) 110 mg/dL 70-105 CALCIUM (BEAKER) (test ftfp=954) 9.2 mg/dL 8.4-10.2 EGFR (BEAKER) (test nmgt=8798) 71 mL/min/1.73 sq m ESTIMATED GFR IS NOT ACCURATE CREATININE CLEARANCE IN PREDICTING GLOMERULAR FILTRATION RATE. ESTIMATED GFR IS NOT APPLICABLE FOR DIALYSIS PATIENTS. POCT-GLUCOSE [id number] 21:26:00* Test Item Value Reference Range Comments POC-GLUCOSE METER (BEAKER) (test ciyp=9577) 141 mg/dL 70-110 TESTED AT [address] [address] POCT-GLUCOSE [id number] 18:16:00* Test Item Value Reference Range Comments POC-GLUCOSE METER (BEAKER) (test iocu=4656) 148 mg/dL 70-110 TESTED AT [facility] [address] [facility] [address] [id number] 06:40:00* Test Item Value Reference Range Comments MAGNESIUM (BEAKER) (test funp=656) 2.2 mg/dL 1.6-2.6 BASIC METABOLIC [id number] 06:31:00* Test Item Value Reference Range Comments SODIUM (BEAKER) (test bqec=307) 138 meq/L 136-145 POTASSIUM (BEAKER) (test podn=680) 4.0 meq/L 3.5-5.1 CHLORIDE (BEAKER) (test suvk=408) 104 meq/L 98-107 CO2 (BEAKER) (test nxqq=297) 25 meq/L 22-29 BLOOD UREA NITROGEN (BEAKER) (test akjd=977) 33 mg/dL 7-21 CREATININE (BEAKER) (test quns=476) 1.08 mg/dL 0.57-1.25 GLUCOSE RANDOM (BEAKER) (test tnzs=829) 125 mg/dL 70-105 CALCIUM (BEAKER) (test bmkw=187) 8.7 mg/dL 8.4-10.2 EGFR (BEAKER) (test rpft=1143) 69 mL/min/1.73 sq m ESTIMATED GFR IS NOT ACCURATE CREATININE CLEARANCE IN PREDICTING GLOMERULAR FILTRATION RATE. ESTIMATED GFR IS NOT APPLICABLE FOR DIALYSIS PATIENTS. CBC W/PLT COUNT & AUTO [id number] 05:45:00* Test Item Value Reference Range Comments WHITE BLOOD CELL COUNT (BEAKER) (test pleq=242) 11.4 K/ L 4.0-10.0 RED BLOOD CELL COUNT (BEAKER) (test zoeq=952) 2.81 M/ L 4.20-5.80 HEMOGLOBIN (BEAKER) (test azgr=703) 8.7 GM/DL 13.0-16.8 HEMATOCRIT (BEAKER) (test rura=012) 26.0 % 40.0-50.0 MEAN CORPUSCULAR VOLUME (BEAKER) (test jodf=877) 92.4 fL 82.0-98.0 MEAN CORPUSCULAR HEMOGLOBIN (BEAKER) (test dpkj=554) 31.1 pg 27.0-33.0 MEAN CORPUSCULAR HEMOGLOBIN CONC (BEAKER) (test mvgu=913) 33.6 GM/DL 32.0-36.0 RED CELL DISTRIBUTION WIDTH (BEAKER) (test eneo=761) 16.3 % 10.3-14.2 PLATELET COUNT (BEAKER) (test trih=994) 101 K/CU MM 150-430 MEAN PLATELET VOLUME (BEAKER) (test bbxy=299) 9.0 fL 6.5-10.5 NUCLEATED RED BLOOD CELLS (BEAKER) (test zzbu=247) 0 /100 WBC 0-0 NEUTROPHILS RELATIVE PERCENT (BEAKER) (test jqrj=592) 77 % LYMPHOCYTES RELATIVE PERCENT (BEAKER) (test giky=849) 12 % MONOCYTES RELATIVE PERCENT (BEAKER) (test oaso=855) 10 % EOSINOPHILS RELATIVE PERCENT (BEAKER) (test llyn=216) 1 % BASOPHILS RELATIVE PERCENT (BEAKER) (test lsud=581) 0 % NEUTROPHILS ABSOLUTE COUNT (BEAKER) (test irwi=830) 8.70 K/ L 1.80-8.00 LYMPHOCYTES ABSOLUTE COUNT (BEAKER) (test khpt=661) 1.40 K/ L 1.48-4.50 MONOCYTES ABSOLUTE COUNT (BEAKER) (test zkcn=072) 1.12 K/ L 0.00-1.30 EOSINOPHILS ABSOLUTE COUNT (BEAKER) (test qqcd=892) 0.13 K/ L 0.00-0.50 BASOPHILS ABSOLUTE COUNT (BEAKER) (test fgkw=645) 0.02 K/ L 0.00-0.20 0.00(MANUAL DIFFERENTIAL)2016-07-18 05:45:00* Test Item Value Reference Range Comments TOTAL COUNTED (BEAKER) (test scih=3876) [id number] 04:49:00* Test Item Value Reference Range Comments PHOSPHORUS (BEAKER) (test sdzd=875) 3.0 mg/dL 2.3-4.7 CALCIUM, [id number] 04:30:00* Test Item Value Reference Range Comments CALCIUM IONIZED (BEAKER) (test baje=814) 1.15 mmol/L 1.12-1.27 PH, BLOOD (BEAKER) (test vnif=3259) 7.41 POCT-GLUCOSE [id number] 18:24:00* Test Item Value Reference Range Comments POC-GLUCOSE METER (BEAKER) (test vksq=4701) 158 mg/dL 70-110 TESTED AT [facility] [address] [facility] [address] POCT-GLUCOSE [id number] 12:38:00* Test Item Value Reference Range Comments POC-GLUCOSE METER (BEAKER) (test hjqn=4101) 128 mg/dL 70-110 TESTED AT [address] [address] POCT-GLUCOSE [id number] 09:57:00* Test Item Value Reference Range Comments POC-GLUCOSE METER (BEAKER) (test mzun=9244) 145 mg/dL 70-110 TESTED AT [place] [id number] [facility] [address] CBC W/PLT COUNT & AUTO [id number] 09:40:00* Test Item Value Reference Range Comments WHITE BLOOD CELL COUNT (BEAKER) (test nysm=687) 13.5 K/ L 4.0-10.0 RED BLOOD CELL COUNT (BEAKER) (test sstd=228) 2.57 M/ L 4.20-5.80 HEMOGLOBIN (BEAKER) (test ejcu=341) 7.8 GM/DL 13.0-16.8 HEMATOCRIT (BEAKER) (test lwoa=796) 24.3 % 40.0-50.0 MEAN CORPUSCULAR VOLUME (BEAKER) (test yfxg=353) 94.7 fL 82.0-98.0 MEAN CORPUSCULAR HEMOGLOBIN (BEAKER) (test lzro=749) 30.2 pg 27.0-33.0 MEAN CORPUSCULAR HEMOGLOBIN CONC (BEAKER) (test dwxi=140) 31.9 GM/DL 32.0-36.0 RED CELL DISTRIBUTION WIDTH (BEAKER) (test arne=676) 13.8 % 10.3-14.2 PLATELET COUNT (BEAKER) (test ckck=526) 110 K/CU MM 150-430 MEAN PLATELET VOLUME (BEAKER) (test ibax=869) 8.7 fL 6.5-10.5 NUCLEATED RED BLOOD CELLS (BEAKER) (test kugi=458) 0 /100 WBC 0-0 NEUTROPHILS RELATIVE PERCENT (BEAKER) (test yfrq=785) 78 % LYMPHOCYTES RELATIVE PERCENT (BEAKER) (test eqmo=924) 11 % MONOCYTES RELATIVE PERCENT (BEAKER) (test ikvx=429) 10 % EOSINOPHILS RELATIVE PERCENT (BEAKER) (test xpwc=639) 1 % BASOPHILS RELATIVE PERCENT (BEAKER) (test mexl=281) 0 % NEUTROPHILS ABSOLUTE COUNT (BEAKER) (test qngm=466) 10.60 K/ L 1.80-8.00 LYMPHOCYTES ABSOLUTE COUNT (BEAKER) (test patk=066) 1.42 K/ L 1.48-4.50 MONOCYTES ABSOLUTE COUNT (BEAKER) (test piti=765) 1.37 K/ L 0.00-1.30 EOSINOPHILS ABSOLUTE COUNT (BEAKER) (test eoqk=317) 0.08 K/ L 0.00-0.50 BASOPHILS ABSOLUTE COUNT (BEAKER) (test hyel=135) 0.04 K/ L 0.00-0.20 (MANUAL DIFFERENTIAL)2016-07-17 09:40:00* Test Item Value Reference Range Comments TOTAL COUNTED (BEAKER) (test qazc=8056) HGB/HCT (H&H) - STAT [id number] 08:37:00* Test Item Value Reference Range Comments HEMOGLOBIN (BEAKER) (test daxq=533) 7.4 g/dL 13.0-16.8 HEMATOCRIT (BEAKER) (test zwtk=409) 22.0 % 40.0-50.0 POCT-GLUCOSE [id number] 07:41:00* Test Item Value Reference Range Comments POC-GLUCOSE METER (BEAKER) (test bhlz=8710) 160 mg/dL 70-110 TESTED AT [facility] [address] [facility] [address] POCT-GLUCOSE [id number] 06:07:00* Test Item Value Reference Range Comments POC-GLUCOSE METER (BEAKER) (test szie=8399) 143 mg/dL 70-110 TESTED AT [facility] [address] [facility] [address] [id number] 05:00:00* Test Item Value Reference Range Comments PHOSPHORUS (BEAKER) (test yzfy=529) 4.5 mg/dL 2.3-4.7 [id number] 05:00:00* Test Item Value Reference Range Comments MAGNESIUM (BEAKER) (test mmzt=148) 2.0 mg/dL 1.6-2.6 BASIC METABOLIC [id number] 05:00:00* Test Item Value Reference Range Comments SODIUM (BEAKER) (test mtvd=119) 140 meq/L 136-145 POTASSIUM (BEAKER) (test dxct=588) 4.7 meq/L 3.5-5.1 CHLORIDE (BEAKER) (test dmze=615) 107 meq/L 98-107 CO2 (BEAKER) (test euef=130) 26 meq/L 22-29 BLOOD UREA NITROGEN (BEAKER) (test aqql=058) 40 mg/dL 7-21 CREATININE (BEAKER) (test mdep=986) 1.66 mg/dL 0.57-1.25 GLUCOSE RANDOM (BEAKER) (test qwkd=752) 140 mg/dL 70-105 CALCIUM (BEAKER) (test svle=614) 8.1 mg/dL 8.4-10.2 EGFR (BEAKER) (test oidx=7433) 42 mL/min/1.73 sq m ESTIMATED GFR IS NOT ACCURATE CREATININE CLEARANCE IN PREDICTING GLOMERULAR FILTRATION RATE. ESTIMATED GFR IS NOT APPLICABLE FOR DIALYSIS PATIENTS. LACTIC ACID, ARTERIAL, WHOLE [id number] 04:54:00* Test Item Value Reference Range Comments LACTATE BLOOD ARTERIAL (2) (BEAKER) (test cgik=1002) 0.6 mmol/L 0.5-2.2 Effective 08/30/2015: Units/Reference Range ChangeNew: 0.5-2.2 mmol/L Previous: 5 -20 mg/dLCALCIUM, [id number] 04:47:00* Test Item Value Reference Range Comments CALCIUM IONIZED (BEAKER) (test huag=620) 1.12 mmol/L 1.12-1.27 PH, BLOOD (BEAKER) (test ivwu=4777) 7.37 POCT-GLUCOSE [id number] 04:24:00* Test Item Value Reference Range Comments POC-GLUCOSE METER (BEAKER) (test cxhs=5561) 143 mg/dL 70-110 TESTED AT [address] [address] B-TYPE NATRIURETIC FACTOR (BNP)2016-07-17 03:02:00* Test Item Value Reference Range Comments B-TYPE NATRIURETIC PEPTIDE (BEAKER) (test hoff=191) 482 pg/mL 0-100 [id number] 02:56:00* Test Item Value Reference Range Comments MAGNESIUM (BEAKER) (test seuk=775) 2.0 mg/dL 1.6-2.6 BASIC METABOLIC [id number] 02:56:00* Test Item Value Reference Range Comments SODIUM (BEAKER) (test sept=154) 141 meq/L 136-145 POTASSIUM (BEAKER) (test dbwr=174) 4.9 meq/L 3.5-5.1 CHLORIDE (BEAKER) (test hnag=895) 108 meq/L 98-107 CO2 (BEAKER) (test vujq=286) 26 meq/L 22-29 BLOOD UREA NITROGEN (BEAKER) (test ougn=453) 40 mg/dL 7-21 CREATININE (BEAKER) (test atcl=508) 1.74 mg/dL 0.57-1.25 GLUCOSE RANDOM (BEAKER) (test myvl=432) 141 mg/dL 70-105 CALCIUM (BEAKER) (test gjwl=017) 8.3 mg/dL 8.4-10.2 EGFR (BEAKER) (test atpb=3182) 40 mL/min/1.73 sq m ESTIMATED GFR IS NOT ACCURATE CREATININE CLEARANCE IN PREDICTING GLOMERULAR FILTRATION RATE. ESTIMATED GFR IS NOT APPLICABLE FOR DIALYSIS PATIENTS. CBC W/PLT COUNT & AUTO [id number] 02:40:00* Test Item Value Reference Range Comments WHITE BLOOD CELL COUNT (BEAKER) (test rpdc=230) 12.6 K/ L 4.0-10.0 RED BLOOD CELL COUNT (BEAKER) (test wglr=955) 2.54 M/ L 4.20-5.80 HEMOGLOBIN (BEAKER) (test cuwj=428) 7.9 GM/DL 13.0-16.8 HEMATOCRIT (BEAKER) (test ptxt=828) 24.1 % 40.0-50.0 MEAN CORPUSCULAR VOLUME (BEAKER) (test snyy=694) 94.9 fL 82.0-98.0 MEAN CORPUSCULAR HEMOGLOBIN (BEAKER) (test ldsn=999) 31.2 pg 27.0-33.0 MEAN CORPUSCULAR HEMOGLOBIN CONC (BEAKER) (test revj=559) 32.9 GM/DL 32.0-36.0 RED CELL DISTRIBUTION WIDTH (BEAKER) (test lgch=658) 13.7 % 10.3-14.2 PLATELET COUNT (BEAKER) (test ikts=872) 92 K/CU MM 150-430 MEAN PLATELET VOLUME (BEAKER) (test gvki=426) 8.7 fL 6.5-10.5 NUCLEATED RED BLOOD CELLS (BEAKER) (test pnib=213) 0 /100 WBC 0-0 NEUTROPHILS RELATIVE PERCENT (BEAKER) (test syfg=231) 83 % LYMPHOCYTES RELATIVE PERCENT (BEAKER) (test rxps=592) 8 % MONOCYTES RELATIVE PERCENT (BEAKER) (test ehuf=295) 9 % EOSINOPHILS RELATIVE PERCENT (BEAKER) (test nzqp=567) 0 % BASOPHILS RELATIVE PERCENT (BEAKER) (test mcen=911) 0 % NEUTROPHILS ABSOLUTE COUNT (BEAKER) (test eezs=954) 10.40 K/ L 1.80-8.00 LYMPHOCYTES ABSOLUTE COUNT (BEAKER) (test umye=313) 0.95 K/ L 1.48-4.50 MONOCYTES ABSOLUTE COUNT (BEAKER) (test mbcw=071) 1.15 K/ L 0.00-1.30 EOSINOPHILS ABSOLUTE COUNT (BEAKER) (test ilbc=726) 0.05 K/ L 0.00-0.50 BASOPHILS ABSOLUTE COUNT (BEAKER) (test ycji=445) 0.05 K/ L 0.00-0.20 0.00POCT-GLUCOSE [id number] 02:31:00* Test Item Value Reference Range Comments POC-GLUCOSE METER (BEAKER) (test gnyt=1151) 142 mg/dL 70-110 TESTED AT [address] [address] POCT-GLUCOSE [id number] 00:15:00* Test Item Value Reference Range Comments POC-GLUCOSE METER (BEAKER) (test jqgf=9824) 143 mg/dL 70-110 TESTED AT [address] [address] POCT-GLUCOSE [id number] 23:13:00* Test Item Value Reference Range Comments POC-GLUCOSE METER (BEAKER) (test mhgb=9978) 129 mg/dL 70-110 TESTED AT [address] [address] POCT-GLUCOSE [id number] 23:13:00* Test Item Value Reference Range Comments POC-GLUCOSE METER (BEAKER) (test kteu=7213) 129 mg/dL 70-110 TESTED AT [facility] [address] [facility] [address] POCT-GLUCOSE [id number] 23:13:00* Test Item Value Reference Range Comments POC-GLUCOSE METER (BEAKER) (test geyw=8392) 116 mg/dL 70-110 TESTED AT [place] [id number] [facility] [address] BASIC METABOLIC [id number] 21:50:00* Test Item Value Reference Range Comments SODIUM (BEAKER) (test hqfx=447) 141 meq/L 136-145 POTASSIUM (BEAKER) (test ikip=185) 5.6 meq/L 3.5-5.1 Specimen slightly hemolyzed CHLORIDE (BEAKER) (test sigk=445) 111 meq/L 98-107 CO2 (BEAKER) (test jojx=078) 21 meq/L 22-29 BLOOD UREA NITROGEN (BEAKER) (test zblh=384) 38 mg/dL 7-21 CREATININE (BEAKER) (test oksj=123) 1.80 mg/dL 0.57-1.25 Specimen slightly hemolyzed GLUCOSE RANDOM (BEAKER) (test hgey=139) 122 mg/dL 70-105 CALCIUM (BEAKER) (test lfkl=645) 8.2 mg/dL 8.4-10.2 EGFR (BEAKER) (test dzsx=4665) 38 mL/min/1.73 sq m ESTIMATED GFR IS NOT ACCURATE CREATININE CLEARANCE IN PREDICTING GLOMERULAR FILTRATION RATE. ESTIMATED GFR IS NOT APPLICABLE FOR DIALYSIS PATIENTS. POCT-GLUCOSE [id number] 18:51:00* Test Item Value Reference Range Comments POC-GLUCOSE METER (BEAKER) (test tlzu=9047) 132 mg/dL 70-110 TESTED AT [place] [id number] [facility] [address] [id number] 18:50:00* Test Item Value Reference Range Comments POTASSIUM (BEAKER) (test clkp=068) 5.7 meq/L 3.5-5.1 Specimen slightly hemolyzed [id number] 18:50:00* Test Item Value Reference Range Comments GLUCOSE RANDOM (BEAKER) (test xbux=228) 125 mg/dL 70-105 Effective 03/15/2014: Reference Range Change-Adult onlyNew: 70-105 Previous: 70-110BASIC METABOLIC [id number] 17:39:00* Test Item Value Reference Range Comments SODIUM (BEAKER) (test qhgt=012) 142 meq/L 136-145 POTASSIUM (BEAKER) (test plxh=021) 5.7 meq/L 3.5-5.1 CHLORIDE (BEAKER) (test gspe=655) 113 meq/L 98-107 CO2 (BEAKER) (test iwrh=525) 22 meq/L 22-29 BLOOD UREA NITROGEN (BEAKER) (test ptyo=138) 34 mg/dL 7-21 CREATININE (BEAKER) (test ppio=165) 1.74 mg/dL 0.57-1.25 GLUCOSE RANDOM (BEAKER) (test djob=886) 133 mg/dL 70-105 CALCIUM (BEAKER) (test bedp=550) 8.6 mg/dL 8.4-10.2 EGFR (BEAKER) (test iain=1362) 40 mL/min/1.73 sq m ESTIMATED GFR IS NOT ACCURATE CREATININE CLEARANCE IN PREDICTING GLOMERULAR FILTRATION RATE. ESTIMATED GFR IS NOT APPLICABLE FOR DIALYSIS PATIENTS. POCT-GLUCOSE [id number] 17:29:00* Test Item Value Reference Range Comments POC-GLUCOSE METER (BEAKER) (test sorg=6642) 147 mg/dL 70-110 TESTED AT [facility] [address] [facility] [address] URINALYSIS W/ [id number] 14:48:00* Test Item Value Reference Range Comments COLOR (BEAKER) (test xlsd=407) Yellow CLARITY (BEAKER) (test uaku=177) Hazy SPECIFIC GRAVITY UA (BEAKER) (test kark=381) 1.017 1.001-1.035 PH UA (BEAKER) (test dqpu=546) 5.0 5.0-8.0 PROTEIN UA (BEAKER) (test hmkz=956) 30 mg/dL Negative GLUCOSE UA (BEAKER) (test iyhs=560) Negative Negative KETONES UA (BEAKER) (test vjdy=184) Negative Negative BILIRUBIN UA (BEAKER) (test pngw=220) Negative Negative BLOOD UA (BEAKER) (test dhhg=383) Moderate Negative NITRITE UA (BEAKER) (test apsh=791) Negative Negative LEUKOCYTE ESTERASE UA (BEAKER) (test ehjf=727) Moderate Negative UROBILINOGEN UA (BEAKER) (test jivu=704) 0.2 mg/dL 0.2-1.0 RBC UA (BEAKER) (test wqyo=105) 64 /HPF WBC UA (BEAKER) (test vxhn=703) 45 /HPF BACTERIA (BEAKER) (test zjty=193) Few MUCUS (BEAKER) (test vxuw=0975) Occasional SQUAMOUS EPITHELIAL (BEAKER) (test tqsf=904) < /HPF HYALINE CASTS (BEAKER) (test pzvx=821) 159 /LPF GRANULAR CASTS (BEAKER) (test rszw=797) 4 /LPF AMORPHOUS CRYSTALS (BEAKER) (test oqon=1638) Rare SOURCE(BEAKER) (test gfmm=3160) CREATININE, RANDOM [id number] 14:41:00* Test Item Value Reference Range Comments CREATININE URINE (BEAKER) (test sjfl=583) 257.5 mg/dL Reference Range: No NormalsSODIUM, RANDOM [id number] 14:41:00* Test Item Value Reference Range Comments SODIUM URINE (BEAKER) (test kqiq=811) 23 meq/L Reference Range: No NormalsPOTASSIUM, RANDOM [id number] 14:38:00* Test Item Value Reference Range Comments POTASSIUM URINE (BEAKER) (test krjk=353) 79.4 meq/L Reference Range: No NormalsPROTEIN, RANDOM [id number] 14:38:00* Test Item Value Reference Range Comments PROTEIN, URINE (BEAKER) (test bbpp=0883) 28 mg/dL 0-14 UREA NITROGEN, RANDOM [id number] 14:38:00* Test Item Value Reference Range Comments UREA NITROGEN URINE (BEAKER) (test msof=438) 237 mg/dL Reference Range: No NormalsBASIC METABOLIC [id number] 12:09:00* Test Item Value Reference Range Comments SODIUM (BEAKER) (test gpal=056) 142 meq/L 136-145 POTASSIUM (BEAKER) (test kbdy=605) 5.5 meq/L 3.5-5.1 CHLORIDE (BEAKER) (test dpva=862) 112 meq/L 98-107 CO2 (BEAKER) (test cjak=684) 22 meq/L 22-29 BLOOD UREA NITROGEN (BEAKER) (test dtam=241) 29 mg/dL 7-21 CREATININE (BEAKER) (test ashn=611) 1.64 mg/dL 0.57-1.25 GLUCOSE RANDOM (BEAKER) (test klgv=430) 123 mg/dL 70-105 CALCIUM (BEAKER) (test isvy=870) 8.5 mg/dL 8.4-10.2 EGFR (BEAKER) (test bexf=3370) 43 mL/min/1.73 sq m ESTIMATED GFR IS NOT ACCURATE CREATININE CLEARANCE IN PREDICTING GLOMERULAR FILTRATION RATE. ESTIMATED GFR IS NOT APPLICABLE FOR DIALYSIS PATIENTS. POCT-GLUCOSE [id number] 11:32:00* Test Item Value Reference Range Comments POC-GLUCOSE METER (BEAKER) (test pdcf=2969) 134 mg/dL 70-110 TESTED AT [facility] [address] [facility] [address] POCT-GLUCOSE [id number] 09:00:00* Test Item Value Reference Range Comments POC-GLUCOSE METER (BEAKER) (test eihg=7956) 117 mg/dL 70-110 TESTED AT [address] [address] [id number] 06:46:00* Test Item Value Reference Range Comments POTASSIUM (BEAKER) (test tjzu=644) 5.0 meq/L 3.5-5.1 GLUCOSE-STAT [id number] 06:45:00* Test Item Value Reference Range Comments GLUCOSE RANDOM (BEAKER) (test vkyv=905) 194 mg/dL 70-110 POTASSIUM-STAT [id number] 05:27:00* Test Item Value Reference Range Comments POTASSIUM (BEAKER) (test zdsg=262) 6.3 meq/L 3.6-5.5 BASIC METABOLIC [id number] 05:06:00* Test Item Value Reference Range Comments SODIUM (BEAKER) (test ckit=694) 141 meq/L 136-145 POTASSIUM (BEAKER) (test emiq=669) 6.2 meq/L 3.5-5.1 Specimen slightly hemolyzed CHLORIDE (BEAKER) (test wbga=495) 112 meq/L 98-107 CO2 (BEAKER) (test czzx=754) 21 meq/L 22-29 BLOOD UREA NITROGEN (BEAKER) (test xhci=543) 24 mg/dL 7-21 CREATININE (BEAKER) (test ncjs=310) 1.40 mg/dL 0.57-1.25 Specimen slightly hemolyzed GLUCOSE RANDOM (BEAKER) (test fpds=759) 130 mg/dL 70-105 CALCIUM (BEAKER) (test chhu=923) 8.2 mg/dL 8.4-10.2 EGFR (BEAKER) (test pmhu=8239) 51 mL/min/1.73 sq m ESTIMATED GFR IS NOT ACCURATE CREATININE CLEARANCE IN PREDICTING GLOMERULAR FILTRATION RATE. ESTIMATED GFR IS NOT APPLICABLE FOR DIALYSIS PATIENTS. CBC W/PLT COUNT & AUTO [id number] 05:03:00* Test Item Value Reference Range Comments WHITE BLOOD CELL COUNT (BEAKER) (test mbgv=612) 17.7 K/ L 4.0-10.0 RED BLOOD CELL COUNT (BEAKER) (test nwvr=804) 3.00 M/ L 4.20-5.80 HEMOGLOBIN (BEAKER) (test swer=729) 9.7 GM/DL 13.0-16.8 HEMATOCRIT (BEAKER) (test eqmz=333) 28.4 % 40.0-50.0 MEAN CORPUSCULAR VOLUME (BEAKER) (test huty=750) 94.8 fL 82.0-98.0 MEAN CORPUSCULAR HEMOGLOBIN (BEAKER) (test conf=092) 32.2 pg 27.0-33.0 MEAN CORPUSCULAR HEMOGLOBIN CONC (BEAKER) (test dsha=423) 34.0 GM/DL 32.0-36.0 RED CELL DISTRIBUTION WIDTH (BEAKER) (test qcjz=601) 13.8 % 10.3-14.2 PLATELET COUNT (BEAKER) (test cuyt=147) 123 K/CU MM 150-430 MEAN PLATELET VOLUME (BEAKER) (test bygx=329) 8.3 fL 6.5-10.5 NUCLEATED RED BLOOD CELLS (BEAKER) (test jtwt=970) 0 /100 WBC 0-0 NEUTROPHILS RELATIVE PERCENT (BEAKER) (test nidu=316) 88 % LYMPHOCYTES RELATIVE PERCENT (BEAKER) (test ngzp=167) 4 % MONOCYTES RELATIVE PERCENT (BEAKER) (test csba=671) 8 % EOSINOPHILS RELATIVE PERCENT (BEAKER) (test ktey=593) 0 % BASOPHILS RELATIVE PERCENT (BEAKER) (test mfqk=470) 0 % NEUTROPHILS ABSOLUTE COUNT (BEAKER) (test vpou=467) 15.50 K/ L 1.80-8.00 LYMPHOCYTES ABSOLUTE COUNT (BEAKER) (test zvvl=893) 0.76 K/ L 1.48-4.50 MONOCYTES ABSOLUTE COUNT (BEAKER) (test pqon=863) 1.40 K/ L 0.00-1.30 EOSINOPHILS ABSOLUTE COUNT (BEAKER) (test dnrs=438) 0.03 K/ L 0.00-0.50 BASOPHILS ABSOLUTE COUNT (BEAKER) (test ewae=258) 0.01 K/ L 0.00-0.20 [id number] 05:01:00* Test Item Value Reference Range Comments MAGNESIUM (BEAKER) (test khtk=653) 2.1 mg/dL 1.6-2.6 Specimen slightly hemolyzed [id number] 05:01:00* Test Item Value Reference Range Comments PHOSPHORUS (BEAKER) (test ajbo=966) 4.5 mg/dL 2.3-4.7 Specimen slightly hemolyzed LACTIC ACID, ARTERIAL, WHOLE [id number] 04:58:00* Test Item Value Reference Range Comments LACTATE BLOOD ARTERIAL (2) (BEAKER) (test pazd=3492) 1.3 mmol/L 0.5-2.2 Effective 08/30/2015: Units/Reference Range ChangeNew: 0.5-2.2 mmol/L Previous: 5 -20 mg/dLPOCT-GLUCOSE [id number] 04:14:00* Test Item Value Reference Range Comments POC-GLUCOSE METER (BEAKER) (test csrp=2912) 118 mg/dL 70-110 TESTED AT [facility] [address] [facility] [address] LACTIC ACID, ARTERIAL, WHOLE [id number] 22:47:00* Test Item Value Reference Range Comments LACTATE BLOOD ARTERIAL (2) (BEAKER) (test phop=2252) 2.7 mmol/L 0.5-2.2 Effective 08/30/2015: Units/Reference Range ChangeNew: 0.5-2.2 mmol/L Previous: 5 -20 mg/dLBLOOD GAS, [id number] 22:42:00* Test Item Value Reference Range Comments PH ARTERIAL (BEAKER) (test htwc=013) 7.39 7.35-7.45 PCO2 ARTERIAL (BEAKER) (test ggvb=786) 39 mmHg 35-45 PO2 ARTERIAL (BEAKER) (test ihir=426) 139 mmHg 80-90 O2 SATURATION ARTERIAL (BEAKER) (test kzwz=855) 98.8 % 96.0-97.0 HCO3 ARTERIAL (BEAKER) (test ordl=456) 23 mmol/L 21-29 BASE EXCESS ARTERIAL (BEAKER) (test lcxd=233) -1.8 mmol/L -2.0-3.0 PATIENT TEMPERATURE (BEAKER) (test oqmd=5183) 35.8 C FIO2 (BEAKER) (test ndeh=9259) 21.0 % GLUCOSE-STAT [id number] 20:40:00* Test Item Value Reference Range Comments GLUCOSE RANDOM (BEAKER) (test eszn=110) 171 mg/dL 70-110 BLOOD GAS, [id number] 20:40:00* Test Item Value Reference Range Comments PH ARTERIAL (BEAKER) (test yykm=712) 7.33 7.35-7.45 PCO2 ARTERIAL (BEAKER) (test acjz=006) 40 mmHg 35-45 PO2 ARTERIAL (BEAKER) (test zhkd=515) 159 mmHg 80-90 O2 SATURATION ARTERIAL (BEAKER) (test cujb=651) 98.9 % 96.0-97.0 HCO3 ARTERIAL (BEAKER) (test dtdb=721) 21 mmol/L 21-29 BASE EXCESS ARTERIAL (BEAKER) (test qcie=146) -4.6 mmol/L -2.0-3.0 PATIENT TEMPERATURE (BEAKER) (test zfjf=4320) 37.2 C FIO2 (BEAKER) (test khtr=0241) 40.0 % POCT-GLUCOSE [id number] 19:44:00* Test Item Value Reference Range Comments POC-GLUCOSE METER (BEAKER) (test lnut=7920) 186 mg/dL 70-110 TESTED AT [facility] [address] [facility] [address] CBC W/PLT COUNT & AUTO [id number] 18:07:00* Test Item Value Reference Range Comments WHITE BLOOD CELL COUNT (BEAKER) (test zxby=632) 22.9 K/ L 4.0-10.0 RED BLOOD CELL COUNT (BEAKER) (test rram=089) 3.31 M/ L 4.20-5.80 HEMOGLOBIN (BEAKER) (test cjpw=855) 10.3 GM/DL 13.0-16.8 HEMATOCRIT (BEAKER) (test eugo=311) 31.4 % 40.0-50.0 MEAN CORPUSCULAR VOLUME (BEAKER) (test ovhl=427) 94.8 fL 82.0-98.0 MEAN CORPUSCULAR HEMOGLOBIN (BEAKER) (test yloc=910) 31.2 pg 27.0-33.0 MEAN CORPUSCULAR HEMOGLOBIN CONC (BEAKER) (test qaeg=786) 32.9 GM/DL 32.0-36.0 RED CELL DISTRIBUTION WIDTH (BEAKER) (test wfky=770) 14.5 % 10.3-14.2 PLATELET COUNT (BEAKER) (test kaes=048) 123 K/CU MM 150-430 MEAN PLATELET VOLUME (BEAKER) (test xbve=509) 8.2 fL 6.5-10.5 NUCLEATED RED BLOOD CELLS (BEAKER) (test ekby=300) 0 /100 WBC 0-0 NEUTROPHILS RELATIVE PERCENT (BEAKER) (test jxvw=743) 84 % LYMPHOCYTES RELATIVE PERCENT (BEAKER) (test asfe=611) 10 % MONOCYTES RELATIVE PERCENT (BEAKER) (test rnsr=015) 6 % EOSINOPHILS RELATIVE PERCENT (BEAKER) (test lbry=212) 1 % BASOPHILS RELATIVE PERCENT (BEAKER) (test blfb=076) 0 % NEUTROPHILS ABSOLUTE COUNT (BEAKER) (test ocbn=535) 19.20 K/ L 1.80-8.00 LYMPHOCYTES ABSOLUTE COUNT (BEAKER) (test dnot=549) 2.21 K/ L 1.48-4.50 MONOCYTES ABSOLUTE COUNT (BEAKER) (test nobw=252) 1.27 K/ L 0.00-1.30 EOSINOPHILS ABSOLUTE COUNT (BEAKER) (test farf=754) 0.12 K/ L 0.00-0.50 BASOPHILS ABSOLUTE COUNT (BEAKER) (test fugh=748) 0.07 K/ L 0.00-0.20 [id number] 17:55:00* Test Item Value Reference Range Comments MAGNESIUM (BEAKER) (test ocmd=449) 2.4 mg/dL 1.6-2.6 Specimen slightly hemolyzed [id number] 17:55:00* Test Item Value Reference Range Comments PHOSPHORUS (BEAKER) (test dlzw=521) 2.4 mg/dL 2.3-4.7 Specimen slightly hemolyzed BASIC METABOLIC [id number] 17:55:00* Test Item Value Reference Range Comments SODIUM (BEAKER) (test vckx=299) 143 meq/L 136-145 POTASSIUM (BEAKER) (test qser=042) 4.7 meq/L 3.5-5.1 Specimen slightly hemolyzed CHLORIDE (BEAKER) (test mgvx=316) 115 meq/L 98-107 CO2 (BEAKER) (test fuur=004) 18 meq/L 22-29 BLOOD UREA NITROGEN (BEAKER) (test fbef=358) 16 mg/dL 7-21 CREATININE (BEAKER) (test wfff=989) 1.08 mg/dL 0.57-1.25 Specimen slightly hemolyzed GLUCOSE RANDOM (BEAKER) (test ygtn=127) 189 mg/dL 70-105 CALCIUM (BEAKER) (test szil=035) 8.5 mg/dL 8.4-10.2 EGFR (BEAKER) (test bcvk=3076) 69 mL/min/1.73 sq m ESTIMATED GFR IS NOT ACCURATE CREATININE CLEARANCE IN PREDICTING GLOMERULAR FILTRATION RATE. ESTIMATED GFR IS NOT APPLICABLE FOR DIALYSIS PATIENTS. LACTIC ACID, ARTERIAL, WHOLE [id number] 17:52:00* Test Item Value Reference Range Comments LACTATE BLOOD ARTERIAL (2) (BEAKER) (test djsk=3163) 3.4 mmol/L 0.5-2.2 Specimen slightly hemolyzed Effective 08/30/2015: Units/Reference Range ChangeNew: 0.5-2.2 mmol/L Previous: 5 -20 mg/[id number] 17:47:00* Test Item Value Reference Range Comments FIBRINOGEN LEVEL (BEAKER) (test shvw=647) 218 mg/dl 225-434 PROTHROMBIN TIME/[id number] 17:46:00* Test Item Value Reference Range Comments PROTIME (BEAKER) (test fsrn=414) 15.6 seconds 11.7-14.7 INR (BEAKER) (test fhvh=531) 1.3 <=5.9 RECOMMENDED COUMADIN/WARFARIN INR THERAPY RANGESSTANDARD DOSE: 2.0 - 3.0 Inclu benoit: PROPHYLAXIS for venous thrombosis, systemic embolization; TREATMENT for justin ous thrombosis and/or pulmonary embolus.HIGH RISK: Target INR is 2.5-3.5 for pat ients with mechanical heart valves.OXYGEN SATURATION, [id number] 17:29:00* Test Item Value Reference Range Comments O2 SATURATION (MEASURED) (BEAKER) (test tdht=4219) 82.8 % From distal port of IJ central venous catheterBLOOD GAS, [id number] 17:27:00* Test Item Value Reference Range Comments PH ARTERIAL (BEAKER) (test ybya=628) 7.36 7.35-7.45 PCO2 ARTERIAL (BEAKER) (test kvhv=929) 38 mmHg 35-45 PO2 ARTERIAL (BEAKER) (test mrvs=030) 235 mmHg 80-90 O2 SATURATION ARTERIAL (BEAKER) (test jucc=899) 99.5 % 96.0-97.0 HCO3 ARTERIAL (BEAKER) (test gvkb=766) 21 mmol/L 21-29 BASE EXCESS ARTERIAL (BEAKER) (test uybh=675) -4.3 mmol/L -2.0-3.0 PATIENT TEMPERATURE (BEAKER) (test fvro=7693) 37.0 C FIO2 (BEAKER) (test sldb=4977) 40.0 % GLUCOSE-STAT [id number] 17:27:00* Test Item Value Reference Range Comments GLUCOSE RANDOM (BEAKER) (test iuor=250) 186 mg/dL 70-110 HGB/HCT (H&H) - STAT [id number] 17:27:00* Test Item Value Reference Range Comments HEMOGLOBIN (BEAKER) (test vnvw=377) 10.1 g/dL 13.0-16.8 HEMATOCRIT (BEAKER) (test amrg=796) 30.0 % 40.0-50.0 SODIUM NA-STAT [id number] 17:26:00* Test Item Value Reference Range Comments SODIUM (BEAKER) (test zazt=314) 140 meq/L 135-148 POTASSIUM-STAT [id number] 17:26:00* Test Item Value Reference Range Comments POTASSIUM (BEAKER) (test vrvi=501) 4.4 meq/L 3.6-5.5 [id number] 17:16:00* Test Item Value Reference Range Comments ACTIVATED CLOTTING TIME (BEAKER) (test fffz=623) 116 sec TESTED AT [place] [address] [id number] 17:16:00* Test Item Value Reference Range Comments ACTIVATED CLOTTING TIME (BEAKER) (test uxkf=198) 420 sec TESTED AT [place] [address] [id number] 17:16:00* Test Item Value Reference Range Comments ACTIVATED CLOTTING TIME (BEAKER) (test bgpt=424) 523 sec TESTED AT [place] [address] [id number] 17:16:00* Test Item Value Reference Range Comments ACTIVATED CLOTTING TIME (BEAKER) (test ikau=668) 471 sec TESTED AT [place] [address] [id number] 17:16:00* Test Item Value Reference Range Comments ACTIVATED CLOTTING TIME (BEAKER) (test gtkj=553) 708 sec TESTED AT [place] [address] [id number] 17:16:00* Test Item Value Reference Range Comments ACTIVATED CLOTTING TIME (BEAKER) (test oxtf=248) 456 sec TESTED AT [place] [address] THROMBOELASTOGRAPH (TEG)[id number] 17:11:00* Test Item Value Reference Range Comments TEG ACTIVATED CLOTTING TIME (BEAKER) (test jpcq=8332) 4.7 minutes 4.0-7.0 TEG FIBRINOGEN ACTIVITY (BEAKER) (test cdyt=4444) 68.0 degrees 61.0-73.0 TEG PLT. AGGREGATION (BEAKER) (test uaqg=5377) 58.7 MM 55.0-65.0 TGH ACTIVATED CLOTTING TIME (BEAKER) (test zhnm=0813) 4.8 minutes 4.0-7.0 TGH FIBRINOGEN ACTIVITY (BEAKER) (test enje=0307) 67.6 degrees 61.0-73.0 TGH PLT. AGGREGATION (BEAKER) (test vcbs=4095) 61.2 MM 55.0-65.0 PROTHROMBIN TIME/[id number] 16:11:00* Test Item Value Reference Range Comments PROTIME (BEAKER) (test bqaq=802) 17.5 seconds 11.7-14.7 INR (BEAKER) (test alik=477) 1.4 <=5.9 RECOMMENDED COUMADIN/WARFARIN INR THERAPY RANGESSTANDARD DOSE: 2.0 - 3.0 Inclu benoit: PROPHYLAXIS for venous thrombosis, systemic embolization; TREATMENT for justin ous thrombosis and/or pulmonary embolus.HIGH RISK: Target INR is 2.5-3.5 for pat ients with mechanical heart valves.[id number] 16:11:00* Test Item Value Reference Range Comments PARTIAL THROMBOPLASTIN TIME (BEAKER) (test dftu=315) 30.0 seconds 22.5-36.0 [id number] 16:11:00* Test Item Value Reference Range Comments FIBRINOGEN LEVEL (BEAKER) (test wnhm=312) 197 mg/dl 225-434 PLATELET [id number] 16:10:00* Test Item Value Reference Range Comments PLATELET COUNT (BEAKER) (test gpty=964) 93 K/CU MM 150-430 CALCIUM, [id number] 15:59:00* Test Item Value Reference Range Comments CALCIUM IONIZED (BEAKER) (test ptgi=359) 1.35 mmol/L 1.12-1.27 PH, BLOOD (BEAKER) (test vwga=0752) 7.32 GLUCOSE-STAT [id number] 15:58:00* Test Item Value Reference Range Comments GLUCOSE RANDOM (BEAKER) (test nbqu=958) 194 mg/dL 70-110 HGB/HCT (H&H) - STAT [id number] 15:58:00* Test Item Value Reference Range Comments HEMOGLOBIN (BEAKER) (test cozx=222) 8.6 g/dL 13.0-16.8 HEMATOCRIT (BEAKER) (test smxv=075) 25.0 % 40.0-50.0 BLOOD GAS, [id number] 15:58:00* Test Item Value Reference Range Comments PH ARTERIAL (BEAKER) (test qfii=363) 7.33 7.35-7.45 PCO2 ARTERIAL (BEAKER) (test ures=480) 44 mmHg 35-45 PO2 ARTERIAL (BEAKER) (test uxzt=469) 499 mmHg 80-90 O2 SATURATION ARTERIAL (BEAKER) (test driu=561) 99.9 % 96.0-97.0 HCO3 ARTERIAL (BEAKER) (test phac=019) 23 mmol/L 21-29 BASE EXCESS ARTERIAL (BEAKER) (test ypij=759) -3.1 mmol/L -2.0-3.0 PATIENT TEMPERATURE (BEAKER) (test tfvc=9279) 36.1 C FIO2 (BEAKER) (test mwrn=7229) 100.0 % SODIUM NA-STAT [id number] 15:57:00* Test Item Value Reference Range Comments SODIUM (BEAKER) (test sqaz=594) 138 meq/L 135-148 POTASSIUM-STAT [id number] 15:57:00* Test Item Value Reference Range Comments POTASSIUM (BEAKER) (test titj=309) 4.7 meq/L 3.6-5.5 POTASSIUM-STAT [id number] 15:14:00* Test Item Value Reference Range Comments POTASSIUM (BEAKER) (test tosg=852) 6.1 meq/L 3.6-5.5 CALCIUM, [id number] 15:11:00* Test Item Value Reference Range Comments CALCIUM IONIZED (BEAKER) (test hcfe=417) 1.00 mmol/L 1.12-1.27 PH, BLOOD (BEAKER) (test hjti=6297) 7.37 BLOOD GAS, [id number] 15:11:00* Test Item Value Reference Range Comments PH ARTERIAL (BEAKER) (test gmqt=614) 7.39 7.35-7.45 PCO2 ARTERIAL (BEAKER) (test otqk=420) 37 mmHg 35-45 PO2 ARTERIAL (BEAKER) (test wjac=527) 247 mmHg 80-90 O2 SATURATION ARTERIAL (BEAKER) (test izby=483) 99.6 % 96.0-97.0 HCO3 ARTERIAL (BEAKER) (test vrrn=857) 22 mmol/L 21-29 BASE EXCESS ARTERIAL (BEAKER) (test eghx=679) -2.8 mmol/L -2.0-3.0 PATIENT TEMPERATURE (BEAKER) (test lcaz=8222) 35.4 C FIO2 (BEAKER) (test cxiq=6291) 70.0 % GLUCOSE-STAT [id number] 15:11:00* Test Item Value Reference Range Comments GLUCOSE RANDOM (BEAKER) (test zhuh=491) 206 mg/dL 70-110 HGB/HCT (H&H) - STAT [id number] 15:11:00* Test Item Value Reference Range Comments HEMOGLOBIN (BEAKER) (test xclq=678) 8.9 g/dL 13.0-16.8 HEMATOCRIT (BEAKER) (test zjiy=410) 26.0 % 40.0-50.0 SODIUM NA-STAT [id number] 15:09:00* Test Item Value Reference Range Comments SODIUM (BEAKER) (test plkh=611) 137 meq/L 135-148 SODIUM NA-STAT [id number] 14:39:00* Test Item Value Reference Range Comments SODIUM (BEAKER) (test upma=322) 135 meq/L 135-148 BLOOD GAS, [id number] 14:39:00* Test Item Value Reference Range Comments PH ARTERIAL (BEAKER) (test avfq=860) 7.30 7.35-7.45 PCO2 ARTERIAL (BEAKER) (test zqjd=497) 47 mmHg 35-45 PO2 ARTERIAL (BEAKER) (test bxsv=797) 256 mmHg 80-90 O2 SATURATION ARTERIAL (BEAKER) (test tgct=480) 99.5 % 96.0-97.0 HCO3 ARTERIAL (BEAKER) (test hkni=234) 24 mmol/L 21-29 BASE EXCESS ARTERIAL (BEAKER) (test yfvh=176) -4.1 mmol/L -2.0-3.0 PATIENT TEMPERATURE (BEAKER) (test vdcf=1698) 32.5 C FIO2 (BEAKER) (test fehs=7377) 60.0 % GLUCOSE-STAT [id number] 14:39:00* Test Item Value Reference Range Comments GLUCOSE RANDOM (BEAKER) (test lzcr=250) 206 mg/dL 70-110 POTASSIUM-STAT [id number] 14:39:00* Test Item Value Reference Range Comments POTASSIUM (BEAKER) (test yefo=646) 6.2 meq/L 3.6-5.5 HGB/HCT (H&H) - STAT [id number] 14:39:00* Test Item Value Reference Range Comments HEMOGLOBIN (BEAKER) (test uwsx=160) 9.0 g/dL 13.0-16.8 HEMATOCRIT (BEAKER) (test xdoe=583) 26.0 % 40.0-50.0 CALCIUM, [id number] 14:14:00* Test Item Value Reference Range Comments CALCIUM IONIZED (BEAKER) (test uqif=471) 0.98 mmol/L 1.12-1.27 PH, BLOOD (BEAKER) (test udgo=9822) 7.21 POTASSIUM-STAT [id number] 14:12:00* Test Item Value Reference Range Comments POTASSIUM (BEAKER) (test dwrr=913) 6.7 meq/L 3.6-5.5 BLOOD GAS, [id number] 14:11:00* Test Item Value Reference Range Comments PH ARTERIAL (BEAKER) (test chzt=921) 7.31 7.35-7.45 PCO2 ARTERIAL (BEAKER) (test yswz=066) 51 mmHg 35-45 PO2 ARTERIAL (BEAKER) (test ycqi=949) 301 mmHg 80-90 O2 SATURATION ARTERIAL (BEAKER) (test nxgc=406) 99.6 % 96.0-97.0 HCO3 ARTERIAL (BEAKER) (test huwq=508) 28 mmol/L 21-29 BASE EXCESS ARTERIAL (BEAKER) (test tyzc=856) -0.7 mmol/L -2.0-3.0 PATIENT TEMPERATURE (BEAKER) (test dqdu=2367) 29.4 C FIO2 (BEAKER) (test gzub=2943) 60.0 % GLUCOSE-STAT [id number] 14:11:00* Test Item Value Reference Range Comments GLUCOSE RANDOM (BEAKER) (test kujs=131) 204 mg/dL 70-110 HGB/HCT (H&H) - STAT [id number] 14:11:00* Test Item Value Reference Range Comments HEMOGLOBIN (BEAKER) (test cmvb=156) 9.5 g/dL 13.0-16.8 HEMATOCRIT (BEAKER) (test axuo=801) 28.0 % 40.0-50.0 SODIUM NA-STAT [id number] 14:09:00* Test Item Value Reference Range Comments SODIUM (BEAKER) (test ttpz=952) 135 meq/L 135-148 POTASSIUM-STAT [id number] 13:41:00* Test Item Value Reference Range Comments POTASSIUM (BEAKER) (test xmqk=138) 5.5 meq/L 3.6-5.5 BLOOD GAS, [id number] 13:41:00* Test Item Value Reference Range Comments PH ARTERIAL (BEAKER) (test sgbe=346) 7.42 7.35-7.45 PCO2 ARTERIAL (BEAKER) (test wydn=983) 37 mmHg 35-45 PO2 ARTERIAL (BEAKER) (test ullw=530) 317 mmHg 80-90 O2 SATURATION ARTERIAL (BEAKER) (test lvbl=627) 99.7 % 96.0-97.0 HCO3 ARTERIAL (BEAKER) (test wwse=130) 26 mmol/L 21-29 BASE EXCESS ARTERIAL (BEAKER) (test jeue=789) -0.6 mmol/L -2.0-3.0 PATIENT TEMPERATURE (BEAKER) (test qvlm=5567) 28.5 C FIO2 (BEAKER) (test zaxx=1301) 80.0 % SODIUM NA-STAT [id number] 13:41:00* Test Item Value Reference Range Comments SODIUM (BEAKER) (test bjxz=211) 134 meq/L 135-148 GLUCOSE-STAT [id number] 13:41:00* Test Item Value Reference Range Comments GLUCOSE RANDOM (BEAKER) (test lrhq=071) 166 mg/dL 70-110 HGB/HCT (H&H) - STAT [id number] 13:41:00* Test Item Value Reference Range Comments HEMOGLOBIN (BEAKER) (test cykc=889) 8.1 g/dL 13.0-16.8 HEMATOCRIT (BEAKER) (test arzx=410) 24.0 % 40.0-50.0 HGB/HCT (H&H) - STAT [id number] 11:43:00* Test Item Value Reference Range Comments HEMOGLOBIN (BEAKER) (test cvzh=859) 11.6 g/dL 13.0-16.8 HEMATOCRIT (BEAKER) (test zskc=248) 34.0 % 40.0-50.0 CALCIUM, [id number] 11:43:00* Test Item Value Reference Range Comments CALCIUM IONIZED (BEAKER) (test bclw=110) 1.20 mmol/L 1.12-1.27 PH, BLOOD (BEAKER) (test egzp=0826) 7.46 BLOOD GAS, [id number] 11:42:00* Test Item Value Reference Range Comments PH ARTERIAL (BEAKER) (test zyzh=877) 7.46 7.35-7.45 PCO2 ARTERIAL (BEAKER) (test rbah=654) 37 mmHg 35-45 PO2 ARTERIAL (BEAKER) (test hvse=529) 505 mmHg 80-90 O2 SATURATION ARTERIAL (BEAKER) (test eqhh=220) 99.9 % 96.0-97.0 HCO3 ARTERIAL (BEAKER) (test wypl=938) 26 mmol/L 21-29 BASE EXCESS ARTERIAL (BEAKER) (test aewb=756) 1.7 mmol/L -2.0-3.0 PATIENT TEMPERATURE (BEAKER) (test guvq=4426) 36.0 C FIO2 (BEAKER) (test grkt=6125) 100.0 % GLUCOSE-STAT [id number] 11:41:00* Test Item Value Reference Range Comments GLUCOSE RANDOM (BEAKER) (test khhq=307) 99 mg/dL 70-110 SODIUM NA-STAT [id number] 11:41:00* Test Item Value Reference Range Comments SODIUM (BEAKER) (test ewyt=892) 139 meq/L 135-148 POTASSIUM-STAT [id number] 11:41:00* Test Item Value Reference Range Comments POTASSIUM (BEAKER) (test arcc=109) 4.4 meq/L 3.6-5.5 HEMOGLOBIN [id number] 16:03:00* Test Item Value Reference Range Comments HEMOGLOBIN A1C (BEAKER) (test xbkx=492) 5.3 % 4.3-6.1 [id number] 14:38:00* Test Item Value Reference Range Comments BLOOD UREA NITROGEN (BEAKER) (test uspd=285) 18 mg/dL 7-21 [id number] 14:38:00* Test Item Value Reference Range Comments SODIUM (BEAKER) (test jqzj=311) 140 meq/L 136-145 POTASSIUM (BEAKER) (test xeen=539) 4.4 meq/L 3.5-5.1 CHLORIDE (BEAKER) (test botj=163) 105 meq/L 98-107 CO2 (BEAKER) (test oygw=049) 24 meq/L 22-29 [id number] 14:38:00* Test Item Value Reference Range Comments CREATININE (BEAKER) (test dehi=563) 1.12 mg/dL 0.57-1.25 EGFR (BEAKER) (test zofz=0321) 66 mL/min/1.73 sq m ESTIMATED GFR IS NOT ACCURATE CREATININE CLEARANCE IN PREDICTING GLOMERULAR FILTRATION RATE. ESTIMATED GFR IS NOT APPLICABLE FOR DIALYSIS PATIENTS. PROTHROMBIN TIME/[id number] 14:26:00* Test Item Value Reference Range Comments PROTIME (BEAKER) (test ccyc=586) 12.4 seconds 11.7-14.7 INR (BEAKER) (test ycnx=117) 0.9 <=5.9 RECOMMENDED COUMADIN/WARFARIN INR THERAPY RANGESSTANDARD DOSE: 2.0 - 3.0 Inclu benoit: PROPHYLAXIS for venous thrombosis, systemic embolization; TREATMENT for justin ous thrombosis and/or pulmonary embolus.HIGH RISK: Target INR is 2.5-3.5 for pat ients with mechanical heart valves.CBC W/PLT COUNT & AUTO [id number] 14:23:00* Test Item Value Reference Range Comments WHITE BLOOD CELL COUNT (BEAKER) (test nwmd=904) 11.7 K/ L 4.0-10.0 RED BLOOD CELL COUNT (BEAKER) (test styw=357) 4.29 M/ L 4.20-5.80 HEMOGLOBIN (BEAKER) (test xmkx=586) 13.4 GM/DL 13.0-16.8 HEMATOCRIT (BEAKER) (test nlsl=235) 39.9 % 40.0-50.0 MEAN CORPUSCULAR VOLUME (BEAKER) (test bfyv=288) 93.1 fL 82.0-98.0 MEAN CORPUSCULAR HEMOGLOBIN (BEAKER) (test hwwr=488) 31.2 pg 27.0-33.0 MEAN CORPUSCULAR HEMOGLOBIN CONC (BEAKER) (test geip=044) 33.6 GM/DL 32.0-36.0 RED CELL DISTRIBUTION WIDTH (BEAKER) (test umya=233) 14.5 % 10.3-14.2 PLATELET COUNT (BEAKER) (test czkp=222) 202 K/CU MM 150-430 MEAN PLATELET VOLUME (BEAKER) (test ignh=310) 7.6 fL 6.5-10.5 NUCLEATED RED BLOOD CELLS (BEAKER) (test xqzf=449) 0 /100 WBC 0-0 NEUTROPHILS RELATIVE PERCENT (BEAKER) (test oyud=126) 65 % LYMPHOCYTES RELATIVE PERCENT (BEAKER) (test zblp=413) 20 % MONOCYTES RELATIVE PERCENT (BEAKER) (test zybp=987) 7 % EOSINOPHILS RELATIVE PERCENT (BEAKER) (test zttx=180) 7 % BASOPHILS RELATIVE PERCENT (BEAKER) (test zjtf=630) 1 % NEUTROPHILS ABSOLUTE COUNT (BEAKER) (test kamj=191) 7.66 K/ L 1.80-8.00 LYMPHOCYTES ABSOLUTE COUNT (BEAKER) (test nmxl=270) 2.34 K/ L 1.48-4.50 MONOCYTES ABSOLUTE COUNT (BEAKER) (test fctx=509) 0.87 K/ L 0.00-1.30 EOSINOPHILS ABSOLUTE COUNT (BEAKER) (test qkrp=953) 0.77 K/ L 0.00-0.50 BASOPHILS ABSOLUTE COUNT (BEAKER) (test lsvh=111) 0.10 K/ L 0.00-0.20 0.00
[2018-03-09 15:25] LABS: BASOPHILS # (AUTO) 0.1 (0.0-0.1); BASOPHILS % 0.6 % (0.0-1.0); EOSINOPHILS # (AUTO) 0.4 (0.0-0.4); EOSINOPHILS % 4.2 % (0.0-6.0); HEMATOCRIT 35.7 % (38.2-49.6); HEMOGLOBIN 11.6 g/dL (14.0-18.0); LYMPHOCYTES # (AUTO) 1.6 (1.0-3.2); LYMPHOCYTES % 17.3 % (18.0-39.1); MEAN CORPUSCULAR HEMOGLOBIN 30.1 pg (28-32); MEAN CORPUSCULAR HGB CONC 32.5 g/dL (31-35); MEAN CORPUSCULAR VOLUME 92.5 fL (81-99); MONOCYTES % 10.8 % (4.4-11.3); NEUTROPHILS # (AUTO) 6.2 (2.1-6.9); NEUTROPHILS % 66.7 % (38.7-80.0); PLATELET COUNT 172 x10e3/uL (140-360); RED BLOOD COUNT 3.86 x10e6/uL (4.3-5.7); RED CELL DISTRIBUTION WIDTH 14.8 % (11.7-14.4)
[2018-03-09] MEDS ORDERED: FUROSEMIDE20 MG PO (15:37)
[2018-03-09] MEDS ORDERED: SPRYCEL140 MG PO (15:37)
[2018-03-09] MEDS ORDERED: GABAPENTIN300 MG PO (15:38)
[2018-03-09 15:49] LABS: ALBUMIN 4.2 g/dL (3.5-5.0); ALBUMIN/GLOBULIN RATIO 1.5 (0.8-2.0); ANION GAP 17.9 mmol/L (8-16); CALCIUM 9.8 mg/dL (8.4-10.2); CREATININE, SERUM 1.33 mg/dL (0.72-1.25); POTASSIUM 3.9 mmol/L (3.5-5.1)
[2018-03-09] MEDS ORDERED: ONDANSETRON HCL INJ 2 MG/ML VIAL IV PRN (17:15)
[2018-03-09] MEDS ORDERED: SODIUM CHLORIDE FLUSH 10 ML SYR INJ PRN (17:15)
--- OUTSIDE RECORDS SUMMARY | 2018-03-09 18:35 | XMS REPORT | Clinical Summary ---
Author Author [employer] Organization [facility] [employer] [facility] Address Unknown Phone Unavailable Care Team Providers Care Chain Builder Name Role Phone Sharpless PCP Ramon Patel [...] [employer]UE [employer] BCBS OS xxxxxxxxxxxx PPO [phone] [address] [place] [address] O (Home) [place] [address] Advance Directives For more information, please contact: [facility] [address] [place] [address] Date Inactivated Comments Code Status Date Activated 07/23/2016 5:03 PM Full Code 07/15/2016 5:15 PM This code status was determined by: Patient 07/15/2016 5:15 PM Full Code 07/15/2016 8:44 AM This code status was determined by: Patient
[2018-03-09] MEDS: CLINDAMYCIN PHOS 900MG/ 50ML 50 ML IV SCH (22:06)
[2018-03-09] MEDS: METHYLPREDNISOLONE SOD SUCC 40 MG/ML VIAL IV SCH (22:06)
[2018-03-09 23:13] VITALS: BP 177/81
[2018-03-09 23:40] VITALS: BP 177/81
[2018-03-10] VITALS (7 sets, daily range): BP systolic 134–177; BP diastolic 60–81
[2018-03-10 04:56] LABS: BASOPHILS % 0.2 % (0.0-1.0); EOSINOPHILS % 0.1 % (0.0-6.0); HEMOGLOBIN 11.7 g/dL (14.0-18.0); LYMPHOCYTES # (AUTO) 0.5 (1.0-3.2); LYMPHOCYTES % 5.8 % (18.0-39.1); MEAN CORPUSCULAR HEMOGLOBIN 29.9 pg (28-32); MEAN CORPUSCULAR HGB CONC 32.5 g/dL (31-35); MEAN CORPUSCULAR VOLUME 92.1 fL (81-99); MONOCYTES % 0.4 % (4.4-11.3); NEUTROPHILS # (AUTO) 8.5 (2.1-6.9); PLATELET COUNT 104 x10e3/uL (140-360); RED BLOOD COUNT 3.91 x10e6/uL (4.3-5.7); RED CELL DISTRIBUTION WIDTH 14.7 % (11.7-14.4)
[2018-03-10 05:18] LABS: CALCIUM 9.3 mg/dL (8.4-10.2); CREATININE, SERUM 1.27 mg/dL (0.72-1.25)
[2018-03-10] MEDS ORDERED: SODIUM CHLORIDE 0.9% 250ML 250 ML ONE (05:57)
[2018-03-10] MEDS: CLINDAMYCIN PHOS 900MG/ 50ML 50 ML IV SCH ×3 (06:07→21:36)
[2018-03-10] MEDS: METHYLPREDNISOLONE SOD SUCC 40 MG/ML VIAL IV SCH ×2 (06:07→14:00)
[2018-03-10] MEDS ORDERED: LORAZEPAM INJ 2 MG/ML VIAL IV PRN (12:00)
[2018-03-10] MEDS: CLOPIDOGREL BISULFATE 75 MG TAB PO SCH (12:00)
[2018-03-10] MEDS: AMLODIPINE BESYLATE 5 MG TAB PO SCH (12:00)
[2018-03-10] MEDS: ALLOPURINOL 300 MG TAB PO SCH (12:00)
[2018-03-10] MEDS: GABAPENTIN 300 MG CAP PO SCH (12:00)
[2018-03-10] MEDS: ASPIRIN 81 MG CHEW TAB PO SCH (12:00)
[2018-03-10] MEDS ORDERED: AMLODIPINE BESYLATE 5 MG TAB PO SCH (17:00)
[2018-03-10] MEDS ORDERED: ATENOLOL 50 MG TAB PO SCH (21:00)
[2018-03-10] MEDS ORDERED: ATORVASTATIN 20 MG TAB PO SCH (21:00)
[2018-03-10] MEDS ORDERED: ATORVASTATIN 40 MG TAB PO SCH (21:00)
[2018-03-11 00:29] VITALS: BP 131/61
[2018-03-11 05:49] VITALS: BP 130/57
[2018-03-11] MEDS: CLINDAMYCIN PHOS 900MG/ 50ML 50 ML IV SCH ×2 (05:57→13:56)
[2018-03-11 08:00] VITALS: BP 146/68
[2018-03-11] MEDS: ASPIRIN 81 MG CHEW TAB PO SCH (08:21)
[2018-03-11] MEDS: ALLOPURINOL 300 MG TAB PO SCH (08:21)
[2018-03-11] MEDS: GABAPENTIN 300 MG CAP PO SCH (08:21)
[2018-03-11] MEDS: AMLODIPINE BESYLATE 5 MG TAB PO SCH (08:21)
[2018-03-11] MEDS: CLOPIDOGREL BISULFATE 75 MG TAB PO SCH (08:21)
[2018-03-11] MEDS ORDERED: METHYLPREDNISOLONE SOD SUCC 40 MG/ML VIAL IV SCH (09:00)
[2018-03-11] MEDS ORDERED: FUROSEMIDE 20 MG TAB PO SCH (09:00)
[2018-03-11 10:26] VITALS: BP 146/68
[2018-03-11 12:00] VITALS: BP 171/71
[2018-03-11 16:00] VITALS: BP 158/71
[2018-03-11] MEDS ORDERED: AMLODIPINE BESYL5 MG PO (17:46)
[2018-03-11] MEDS ORDERED: METOPROLOL TART50 MG PO (17:46)
--- NOTE | 2018-03-11 20:40 | Consultation ---
DATE OF CONSULTATION: March 10, 2018 HEMATOLOGY CONSULTATION REQUESTING PHYSICIAN: Dr. Dm Moya. HISTORY OF PRESENT ILLNESS: Mr. Wesley is a 63-year-old white male who was seen in my office on March 09, 2018, because he had pain in the left eye for approximately 2 days. The left eye was shut down. The patient also complained of swelling on the left side of the face starting on March 07, 2018. The patient also claimed that he had left side of the face feeling tingly, and the patient also claimed that he had muscle aches all over. He denied fever. SOCIAL HISTORY: Noncontributory. FAMILY HISTORY: Noncontributory. ALLERGIES REPORTED: ESSENTIALLY NEGATIVE. MEDICATIONS AT THIS TIME 1. Carafate 1 g twice a day. 2. Lisinopril 10 mg once a day. 3. Atenolol 50 mg once a day. 4. Aspirin 81 mg a day. 5. Allopurinol 300 mg a day. 6. Lipitor 40 mg a day. 7. CoQ10, 100 mg once a day. 8. Lasix 20 mg a day. 9. Gabapentin 300 mg a day. 10. Sprycel 140 mg a day. REVIEW OF SYSTEMS HEENT: Swelling of the left eye with swelling as such that the left eye has shut down. CARDIAC: History of hypertension, hyperlipidemia, coronary artery disease with coronary stenting. Heart cath on August 18, 2014, 70% blockage. Repeat cardiac cath on February 20, 2016, required 3-vessel CABG in June 2016. Episode of atrial fibrillation after surgery. GASTROINTESTINAL: EGD and colonoscopy in January 2017. HEMATOLOGY: History of CGL. Was on Tasigna with incomplete remission; however, this was discontinued because of some of the side effects which he had. MUSCULOSKELETAL: Recurrent cervical pains, leg cramps in both the feet, muscle aches in the right arm. PHYSICAL EXAMINATION GENERAL: A moderately built male, 5 feet 8 inches tall, weighs 188 pounds. VITAL SIGNS: Pulse 64, blood pressure of 132/74. EYES: The left eye outer canthus site is tender. Eye shut down because of the swelling. Tender skin and swelling over the left outer eyelid with local rise of temperature. EARS: Normal. NOSE: Normal. ORAL CAVITY: Normal. NECK AND THYROID: Normal. SKIN: Normal turgor. HEART: No clicks. A CABP scar. LUNGS: Clear. CHEST: Sternotomy scar. ABDOMEN: No ascites, no splenomegaly. MUSCULOSKELETAL: Full range of motion. EXTREMITIES: 1+ pitting edema of the right lower extremity. NEUROLOGICAL: Alert. IMPRESSION 1. Atherosclerotic cardiovascular disease. 2. History of hyperlipidemia. 3. History of gout. 4. History of essential hypertension. 5. Chronic myelogenous leukemia. 6. Iron deficiency anemia secondary to chronic blood loss. 7. Angioneurotic edema because of Tasigna, discontinued on February 05, 2018. 8. Cellulitis of the face. PLAN: To admit him for aggressive antibiotic therapy, MRI of the orbit, ophthalmology consultation. I had called Dr. Redding in the ER of [facility], gave him all the details. This EMR was faxed to Dr. Redding in the ER at [phone] to admit, aggressive antibiotics, consultation with Infectious Disease and Ophthalmology. I will confine myself to hematology. Job#: [id number] EV cc: DR. BENTON cc:ALBERT CHUN MD cc:JAYJAY REDDING MD cc:DM MOYA MD
== END 2018-03-11 19:12 | disposition home or self-care (01) ==
LOC: ER 13:42 → ERHOLD 18:30 → MED/SURG2 22:40
DX: L03.213 Periorbital cellulitis (principal); T78.3XXA Angioneurotic edema, initial encounter; C92.11 Chronic myeloid leukemia, BCR/ABL-positive, in remission; I25.10 Atherosclerotic heart disease of native coronary artery without angina pectoris; Z95.1 Presence of aortocoronary bypass graft; E78.5 Hyperlipidemia, unspecified; D50.0 Iron deficiency anemia secondary to blood loss (chronic); I12.9 Hypertensive chronic kidney disease with stage 1 through stage 4 chronic kidney disease, or unspecified chronic kidney disease; N18.3 Chronic kidney disease, stage 3 (moderate); Z94.0 Kidney transplant status
CPT/HCPCS: 36415 ×2; 80048; 80053; 83605; 85025 ×2; 87040; 99284; G0378 ×3; J2060; J2920 ×3; J7050

== ENCOUNTER → 2018-04-13 | Outpatient (CLI) | payer BC ==
[~2018-04-13] MED LIST changes: +AMLODIPINE BESYL5 MG PO; +FUROSEMIDE20 MG PO; +GABAPENTIN300 MG PO; +IOPAMIDOL 370 MG/ML 200 ML INFUS..BTL INJ ONE; +METOPROLOL TART50 MG PO; +SODIUM CHLORIDE 0.9% 50ML 50 ML ONE; +SPRYCEL140 MG PO
[2018-04-13 09:35] LABS: BLOOD UREA NITROGEN 13 mg/dL (7-26); BUN/CREATININE RATIO 14 (6-25); CREATININE, SERUM 0.93 mg/dL (0.72-1.25); EST GLOMERULAR FILTRATION RATE > 60 ML/MIN (60-)
--- NOTE | 2018-04-13 10:53 | Diagnostic Imaging Report ---
EXAM: CT Chest WITH contrast INDICATION: COMPARISON: None. TECHNIQUE: The Chest was scanned utilizing a multidetector helical scanner after administration of IV contrast. Coronal and sagittal reformations were obtained. IV CONTRAST: 100 mL Isovue-370 COMPLICATIONS: None RADIATION DOSE: Total DLP: 571 mGy*cm Estimated effective dose: (DLP x 0.015 x size factor) mSv CTDIvol has been reviewed. It is below the limits set by the Radiation Protocol Committee (RPC). Appropriate CT dose reduction techniques were utilized. FINDINGS: Lines and Tubes: None. Lower Neck: The visualized thyroid gland is grossly unremarkable with no suspicious or significant nodule identified. Heart and Great Vessels: The aorta and main pulmonary artery measure 35 and 31 mm. respectively. Moderate aortic atherosclerotic changes and three-vessel coronary artery vascular calcifications present with CABG changes noted. No central pulmonary embolus is identified. There is dilation of the right atrium with 63 mm transverse diameter. There is subtle straightening of the interventricular septum and right ventricular free wall. There is a large fluid collection measuring 105 x 81 x 34 mm with a thick enhancing wall and internal simple fluid/Hounsfield units 13 sitting inferior to the heart, but apparently within the pericardium. This appears to be distinct/separate from the esophagus and does not appear to be a hiatal hernia. Lymph Nodes: No suspicious adenopathy. Lungs: Small left and moderate right simple pleural effusions with bibasilar dense areas of consolidation which predominantly enhances consistent with atelectasis. Mild scattered septal thickening and groundglass opacities are present. There is no pneumothorax. Mild paraseptal emphysematous changes are present in the apices. Trachea and central bronchi are unremarkable. Upper abdomen: Limited. No acute findings. Bones and Soft Tissues: No acute findings. IMPRESSION: 1. Large 105 x 81 x 34 mm fluid collection with thick enhancing wall inferior to the heart which appears to be within the pericardium. This corresponds with provided history is scanned in the PACS. Findings could represent resolving hematoma with abscess not excluded. Cystic mass felt unlikely, but not entirely excluded. Correlation with prior imaging, clinical correlation, and follow-up recommended. 2. Small left and moderate right pleural effusion with scattered mild groundglass opacities and septal thickening consistent with volume overload. 3. Dilation of the right atrium and reflux of contrast into the liver consistent with elevated right heart pressures. Given questionable straightening of the interventricular septum and right ventricular free wall, constrictive pericarditis possible. Correlation with echocardiogram and retrocardiac MRI recommended. Signed by: Dr. Jacob Adam MD on 04/13/2018 10:50 AM
== END ==
LOC: CT 08:19
PROVIDERS: ATTEND Internal Medicine Interventional Cardiology
DX: R06.02 Shortness of breath (principal); J90 Pleural effusion, not elsewhere classified
CPT/HCPCS: 36415; 71260; 82565; 84520; Q9967

== ENCOUNTER → 2021-05-11 | Outpatient (CLI) | payer BC ==
[~2021-05-11] MED LIST changes: -IOPAMIDOL 370 MG/ML 200 ML INFUS..BTL INJ ONE; -SODIUM CHLORIDE 0.9% 50ML 50 ML ONE
== END ==
LOC: US 13:21
PROVIDERS: ATTEND Internal Medicine Gastroenterology
DX: K21.9 Gastro-esophageal reflux disease without esophagitis (principal); D50.9 Iron deficiency anemia, unspecified; R07.9 Chest pain, unspecified; R10.11 Right upper quadrant pain; R14.0 Abdominal distension (gaseous); R12 Heartburn; C92.Z0 Other myeloid leukemia not having achieved remission; Z12.11 Encounter for screening for malignant neoplasm of colon; Z79.01 Long term (current) use of anticoagulants
CPT/HCPCS: 76700